=== PATIENT | male | born 1955 | race Caucasian/White ===

== ENCOUNTER → 2017-08-11 09:55 | Outpatient (CLI) | payer OTHER, SELFPAY ==
[2017-08-11 12:18] LABS: PSA,Total - Annual Screen 3.85 ng/mL (0.00-4.00)
== END ==
PROVIDERS: Family Provider Family Medicine; PCP Family Medicine; Visit Provider Family Medicine
DX: Z12.5 Encounter for screening for malignant neoplasm of prostate (principal)
CPT/HCPCS: 36415; 84153; G0103

== ENCOUNTER → 2018-09-10 09:51 | Outpatient (CLI) | payer OTHER, SELFPAY ==
[2018-09-10 12:58] LABS: PSA,Total - Annual Screen 3.26 ng/mL (0.00-4.00)
== END ==
PROVIDERS: Family Provider Family Medicine; PCP Family Medicine; Referring Provider Family Medicine; Visit Provider Family Medicine
DX: Z12.5 Encounter for screening for malignant neoplasm of prostate (principal)
CPT/HCPCS: 36415; 84153; G0103

== ENCOUNTER → 2019-09-16 07:04 | Outpatient (CLI) | payer OTHER, SELFPAY ==
[2019-09-16 09:54] LABS: Absolute Neutrophil Count 3.1 X10^3/uL (2.0-7.7); Basophil# 0.04 X10^3/uL; Basophil% 0.8 % (0-1); Eosinophil# 0.26 X10^3/uL; Eosinophils% 4.9 % (0-5); Hematocrit 48.5 % (40-54); Hemoglobin 16.3 g/dL (13.0-16.5); Lymphocyte % 28.1 % (19-41); Mean Corp Hgb Conc 33.6 g/dL (32-36); Mean Corpuscular Hgb 31.6 pg (27.0-32.0); Mean Platelet Vol. 9.7 fl (6.2-12.0); Monocyte# 0.42 X10^3/uL; Monocyte% 7.9 % (0-10); NRBC Flagged by Analyzer 0 % (0-5); Neutrophil % 58.1 % (47-70); Platelet Count 211 K/mm3 (150-450); RBC Distribution Width CV 12.3 % (11.6-14.6); RBC Distribution Width SD 42.4 fl (35.1-43.9); Red Blood Count 5.16 M/mm3 (4.6-6.2); White Blood Count 5.3 K/mm3 (4.4-11.0)
[2019-09-16 10:16] LABS: ALB/GLOB Ratio 0.9 RATIO (0.9-2.4); AST(SGOT) 30 U/L (15-37); Alanine Aminotransfer ALT/SGPT 41 U/L (16-61); Albumin, Serum 3.5 g/dL (3.2-5.0); Alkaline Phosphatase 63 U/L (45-117); Anion Gap 3 (5-15); BUN 14 mg/dL (7-18); BUN/Creat Ratio 15.3 RATIO (10-20); Calcium,Total 8.6 mg/dL (8.5-10.1); Chloride 107 mmol/L (98-107); Cholesterol 188 mg/dL (200); Creatinine, Serum 0.92 mg/dL (0.70-1.30); EST Glomerular Filtration Rate 89 mL/min (>60); Est Glom Filt Rate - Afr Amer 107 mL/min (>60); Globulin 3.7 g/dL (2.2-4.2); Glucose 85 mg/dL (74-106); High Density Lipoprotein 48 mg/dL; PSA,Total - Annual Screen 3.08 ng/mL (0.00-4.00); Potassium 3.8 mmol/L (3.5-5.1); Protein, Total 7.2 g/dL (6.4-8.2); Sodium Level 140 mmol/L (136-145); Thyroid Stim Hormone (TSH) 2.93 uIU/mL (0.358-3.74); Triglycerides 106 mg/dL; Very Low Density Lipoprotein 21 mg/dL (5-40)
== END ==
PROVIDERS: PCP Family Medicine; Referring Provider Family Medicine; Visit Provider Family Medicine
DX: Z00.00 Encounter for general adult medical examination without abnormal findings (principal); Z12.5 Encounter for screening for malignant neoplasm of prostate; E03.9 Hypothyroidism, unspecified
CPT/HCPCS: 36415; 80053; 80061; 84153; 84443; 85025; G0103

== ENCOUNTER → 2019-12-26 16:45 | Outpatient (CLI) | payer OTHER, SELFPAY | PROVIDERS: Anesthesiology; PCP Family Medicine; Referring Provider Family Medicine; Visit Provider Surgery | DX: Z11.59 Encounter for screening for other viral diseases (principal) | CPT/HCPCS: 87635; 94799; C9803; U0003 ==

== ENCOUNTER 2020-03-26 06:48 | Day surgery (SDC) | payer OTHER, SELFPAY ==
[2020-03-26] VITALS (7 sets, daily range): BP systolic 99–130; BP diastolic 61–82; PULSE 67–89; RESP 16; TEMP 36.9–37.2; O2SAT 94–97; BMI 26.0
[2020-03-26] MEDS: Lactated Ringers 1,000 ML 100 ML IV (07:20)
--- NOTE | 2020-03-26 08:00 | HP.PCM_ITS ---
History of Present Illness Date of Admission: 03/26/20 The patient is a 64 year old M who presents for screening colonoscopy. His last colonoscopy was greater than 10 years ago. No reports of polyps at that time. Past Medical/Surgical History - Planned Operation Planned Operative Procedure/s: cscope Date of Operative Procedure: 03/26/20 S.O.S: No - Previous Hospitalizations/Surgeries HX Hospitalizations: No HX of Surgeries: FRACTURE REPAIRS AND HARDWARE PLACEMENT TO RIGHT KNEE AND LEFT ANKLE 03/2013. colonoscopy Any Problems With Anesthesia: No You/Your Family Experience Fever (Hyperthermia) With Anes: No Cholinesterase deficiency: No - Cardiovascular Hx Chest Pain within Last 2 months: No Hx of Irregular Heartbeat and/or Afib: No Hx Heart Attack: No Hx Congestive Heart Failure: No Hx Rheumatic Fever: No Hx Hypertension: No Hx Internal Defibrillator: No Hx Pacemaker: No Hx Cardiac Catheterization: No Hx Cardiac Surgery/Stents/Etc.: No Hx Stress Test: No Hx Pain in Legs when Walking/Leg Cramps: No - Respiratory Chronic Cough: No HX of Shortness of Breath: No Hoarseness: No Hx Chronic Obstructive Pulmonary Disease (COPD): No Hx Asthma: No Hx Emphysema: No Hx Sleep Apnea: No Hx Respiratory Tract Infection/Cold (presently): No Do You Snore Loudly (louder than talking or can be heard): No Do You Often Feel Tired/ Fatigued/ Sleepy Dring Daytime?: No Has Anyone Observed You Stop Breathing During Sleep?: No Result (for STOP score): Negative Hx Smoking: No Smoking Status: Never smoker - Gastrointestinal Hx Gastroesophageal Reflux: No Hx Gastrointestinal Disorders: No Hx Gastrointestinal Bleed: No Hx Ulcer: No Hx Hiatal Hernia: No Difficulty Chewing/Swallowing: Yes - trouble swallowing sometimes Special diet followed at home: No Hx Unplanned Weight Loss of 20#: No HX Unplanned Weight Gain of 20#: No - Neurological Hx Seizures: No HX Syncope/Blackout Spells/Unconsciousness: No Hx Transient Ischemic Attacks (TIA): No Hx Multiple Sclerosis: No Hx Parkinson's Disease: No Hx Head/Neck Injury: No Hx Headaches: No Hx Back Injury/Pain: No Recent Onset of Speech Difficulty: No Restless Legs: No Does patient have nerve stimulator: No - Blood Disorder Hx Leukemia: No Bleeding Tendencies: No Hx Deep Vein Thrombosis: No Hx High Cholesterol: No Blood Transmitted Disease: No Hx Hepatitis: No Hx Cirrhosis: No Hx Anemia: No Hx Blood Disorders: No - Genitourinary Hx Renal Disease: No Hx Dialysis: No - Musculoskeletal Hx Arthritis: No Hx Rheumatoid Arthritis: No Hx Gout: No Recent Onset of an Orthopedic Problem: No - Endocrine Hx Diabetes: No Thyroid Disease: No Hx Steroid Therapy: No - Psycho/Social Hx Substance Use: No Hx Alcohol Use: Yes - 1-2 beers/month Hx Anxiety: No Hx Depression: No Mental Illness: No Hx Dementia: No - Miscellaneous Hx Cancer: No Recent Exposure to Contagious Disease: No Hx of C-Diff: No Any Loose Teeth: No Allergies amoxicillin [Amoxicillin] Allergy (Verified 03/26/20 06:54) Rash sulfamethoxazole [From Bactrim] Allergy (Verified 03/26/20 06:54) Rash trimethoprim [From Bactrim] Allergy (Verified 03/26/20 06:54) Rash - Discharge Is Pt Admitted From a Custodial, or a Alf: No After D/C, Where Do you Plan to Go: Return Home - From the PAT History Number of Risk Factors: 1 - Physical Exam Vitals/I&O's: Vital Signs Temp Pulse Resp BP Pulse Ox 98.5 F 89 16 130/82 H 97 03/26/20 07:14 03/26/20 07:14 03/26/20 07:14 03/26/20 07:14 03/26/20 07:14 Oxygen Delivery Method Room Air Weight: 176 lb 5.917 oz Body Mass Index (BMI) 26.0 Lungs: Clear to auscultation Cardiovascular: Regular rate, Regular Rhythm, No murmurs Abdomen: Bowel Sounds Present, Soft, Non Tender, Non-Distended Microbiology Past 72 Hours 03/23/20 16:05 Mucosa - Nose SARS-CoV-2 Antigen (Rapid) - Final Current Medications Lactated Ringer's () 1,000 mls @ 100 mls/hr IV .Q10H SHELIA Last Admin: 03/26/20 07:20 Dose: 100 mls/hr Documented by: Assessment/Plan Assessment: Screening colonoscopy Plan: We will be to perform a colonoscopy. Surgery Risks - Colonoscopy Risks Include but are not Limited To: Risks include but are not limited to: Bleeding, perforation requiring further surgery, inability to complete colonoscopy requiring barium enema.
--- NOTE | 2020-03-26 08:26 | OP.COLON_ITS ---
Patient Name: Moses Laboy Procedure Date: 03/26/2020 8:02 AM Date of : 1955 Age: 64 Procedure: Colonoscopy Indications: Screening for colorectal malignant neoplasm Providers: Afshin Horvath MD Referring MD: Ignacio Delarosa Medicines: See the Anesthesia note for documentation of the administered medications Patient Profile: This is a 64 year old male. Refer to note in patient chart for documentation of history and physical. Last Colonoscopy: more than 10 years ago. Complications: No immediate complications. Procedure: Pre-Anesthesia Assessment: - Prior to the procedure, a History and Physical was performed, and patient medications and allergies were reviewed. The patient's tolerance of previous anesthesia was also reviewed. The risks and benefits of the procedure and the sedation options and risks were discussed with the patient. All questions were answered, and informed consent was obtained. Prior Anticoagulants: The patient has taken no previous anticoagulant or antiplatelet agents. ASA Grade Assessment: II - A patient with mild systemic disease. After reviewing the risks and benefits, the patient was deemed in satisfactory condition to undergo the procedure. After I obtained informed consent, the scope was passed under direct vision. Throughout the procedure, the patient's blood pressure, pulse, and oxygen saturations were monitored continuously. The colonoscope was introduced through the anus and advanced to 3 cm into the ileum. The colonoscopy was performed without difficulty. The patient tolerated the procedure well. The quality of the bowel preparation was good. Scope In: 8:13:14 AM Scope Withdrawal Time 0 hours 6 minutes 0 seconds Scope Out: 8:22:20 AM Total Procedure Duration Time 0 hours 9 minutes 6 seconds Findings: The terminal ileum appeared normal. Non-bleeding internal hemorrhoids were found during retroflexion. The hemorrhoids were mild and small. No biopsies or other specimens were collected for this exam. A few small-mouthed diverticula were found in the sigmoid colon. No biopsies or other specimens were collected for this exam. The exam was otherwise without abnormality. Impression: - The examined portion of the ileum was normal. - Non-bleeding internal hemorrhoids. No specimens collected. - Diverticulosis in the sigmoid colon. No specimens collected. - The examination was otherwise normal. Recommendation: - Discharge patient to home. - Resume previous diet. - Continue present medications. - Repeat colonoscopy in 10 years for screening purposes. - Return to primary care physician (date not yet determined). Procedure Code(s): --- Professional --- 88509, Colonoscopy, flexible; diagnostic, including collection of specimen(s) by brushing or washing, when performed (separate procedure) Diagnosis Code(s): --- Professional --- Z12.11, Encounter for screening for malignant neoplasm of colon K64.8, Other hemorrhoids K57.30, Diverticulosis of large intestine without perforation or abscess without bleeding CPT copyright 2017 [employer]. All rights reserved. The codes documented in this report are preliminary and upon student career development specialist review may be revised to meet current compliance requirements. MD Afshin Ching MD 03/26/2020 8:26:42 AM This report has been signed electronically. Number of Addenda: 0 Note Initiated On: 03/26/2020 8:02 AM
--- NOTE | 2020-03-26 08:27 | OP.CCLET_ITS ---
03/26/2020 Ignacio Delarosa [address] [place] [address] Re : Colonoscopy procedure for Moses Laboy Dear Dr. Delarosa This procedure was performed on Thursday, March 26, 2020. My impressions and recommendations are as follows: Impressions : - The examined portion of the ileum was normal. - Non-bleeding internal hemorrhoids. No specimens collected. - Diverticulosis in the sigmoid colon. No specimens collected. - The examination was otherwise normal. Recommendations : - Discharge patient to home. - Resume previous diet. - Continue present medications. - Repeat colonoscopy in 10 years for screening purposes. - Return to primary care physician (date not yet determined). My findings are described in the full procedure note, which is enclosed. If I can be of further assistance, please feel free to contact me at Doctor phone number(s): , Fax: [phone], Work: . Sincerely, MD Afshin Ching MD 03/26/2020 8:26:42 AM This report has been signed electronically.
== END 2020-03-26 09:07 | disposition home or self-care (01) ==
LOC: EN 06:48 → AC 06:49
PROVIDERS: PCP Family Medicine; Referring Provider Family Medicine; Visit Provider Surgery
PROC: 0DJD8ZZ Inspection of Lower Intestinal Tract, Via Natural or Artificial Opening Endoscopic (ICD-10-PCS; CPT 45378; principal; 2020-03-26 07:55)
DX: Z12.11 Encounter for screening for malignant neoplasm of colon (principal); K57.30 Diverticulosis of large intestine without perforation or abscess without bleeding; K64.8 Other hemorrhoids
CPT/HCPCS: 45378; 87426; C9803; J7120

== ENCOUNTER → 2020-05-16 09:47 | Outpatient (CLI) | payer OTHER, SELFPAY ==
[2020-03-26 07:14] VITALS: BMI 26.0
--- NOTE | 2020-05-16 09:55 | RAD_ITS ---
STUDY: X-RAY - ESOPHAGUS (BARIUM SWALLOW) WITH FLUOROSCOPY REASON FOR EXAM: Male, 65 years old. DYSPHAGIA W/ SOLIDS X 3-4 YRS. ALSO FAM HX OF DYSPHAGIA W/ SOLIDS. FAM HX CA TECHNIQUE: 15 view(s) of the esophagus were obtained following swallowing of barium. FLUOROSCOPY TIME (if supplied): (0:32) minutes/seconds COMPARISON: None. FINDINGS: There is no demonstrated esophageal foreign body. There is no demonstrated stricture or mucosal abnormality. Normal gastroesophageal junction, without a demonstrated hiatal hernia. The patient ingested a 12 mm tablet of barium without any difficulty. Normal visualized aortic arch and descending thoracic aorta. Normal visualized pulmonary parenchyma. Normal visualized osseous structures of the thorax. RAD/Esophagus Dual Contrast IMPRESSION: Normal plain film x-ray examination (barium swallow) of the esophagus. Electronically Signed: Juan Antonio Mattson, at 14:20 EST , Service support ,
== END ==
PROVIDERS: PCP Family Medicine; Referring Provider Family Medicine; Visit Provider Family Medicine
DX: R13.10 Dysphagia, unspecified (principal)
CPT/HCPCS: 74221

== ENCOUNTER 2020-05-30 07:33 | Day surgery (SDC) | payer OTHER, SELFPAY ==
[2020-05-23 08:25] VITALS: BMI 28.3
[2020-05-30] VITALS (7 sets, daily range): BP systolic 94–129; BP diastolic 45–95; PULSE 70–81; RESP 16–18; TEMP 37–37.2; O2SAT 95–99; BMI 27.8
--- NOTE | 2020-05-30 05:17 | HP_ITS ---
Intake Vital Signs 05/23/20 Height 5 ft 8.25 in 05/23/20 Weight: 187 lb 5 oz Intake Visit Reasons: Esophagogastroduodenoscopy Allergies amoxicillin [Amoxicillin] Allergy (Verified 05/23/20 08:26) Rash sulfamethoxazole [From Bactrim] Allergy (Verified 05/23/20 08:26) Rash trimethoprim [From Bactrim] Allergy (Verified 05/23/20 08:26) Rash Medications omeprazole 40 mg capsule,delayed release cap PO 05/23/20 [History Confirmed 05/23/20] [facility] Medical History (Updated 05/23/20 @ 08:25 by Sheba Gaytan) Dysphagia (Acute) GERD (gastroesophageal reflux disease) (Acute) Surgical History (Updated 05/23/20 @ 08:25 by Sheba Gaytan) History of ankle surgery (Acute) History of appendectomy (Acute) History of colonoscopy (Acute ~03/2020) History of open reduction and internal fixation (ORIF) procedure (Acute) Family History (Updated 05/23/20 @ 08:25 by Sheba Gaytan) Father Heart disease Myocardial infarction Rheumatic fever Mother COPD (chronic obstructive pulmonary disease) Brother Cancer lung Social History (Updated 05/23/20 @ 09:[address] Afshin Horvath MD) Smoking Status: Never smoker HPI HPI Surgical H&P: Yes HPI: MELANIA SANTOYO, is a 65 M who presents For a telephone interview. Patient has been having problems with intermittent dysphagia. This is gotten worse over the last few months. He has had problems with food getting stuck about once a month. He states he notices this with solid foods. Feels like this is happening in the mid chest area. He did has had to vomit up steak in the past. He does not have any epigastric or substernal burning. He does not notice a sour taste in his throat or sensation cessation of regurgitation. Patient's last episode was on when he was having chili and it got stuck in his esophagus and he had to vomit this back up. Patient has had a barium swallow with fluoroscopy which showed no demonstrated stricture or mucosal abnormality there was no foreign bodies. The GE junction was normal without hiatal hernia and the 12 mm tablet went through it without difficulty. Patient has currently been started on a PPI by his primary care physician and has been taking it for the last 10 days. He states that he thinks that his food is going down easier through his esophagus and he has no longer having burping episodes. Assessment & Plan Problems 1. Esophageal dysphagia R13.10 Plan I have discussed the above with the patient. I have offered the patient esophagogastroduodenoscopy for evaluation. I have explained the risks/benefits of the procedure and described the procedure. I have discussed the risks with the patient, including but not limited to: infection, bleeding, perforation of the GI tract requiring emergency surgery, inability to complete the procedure, injury to any internal organs, complications of anesthesia, etc. - the patient understands and agrees to proceed. I have answered all the patient's questions to the patient's satisfaction and the patient has no further questions. The patient has been given instructions for the colon cleansing preparation. Coding Level of Care Code Attention [place] Diagnoses Esophageal dysphagia R13.10 ??Dysphagia type: esophageal phase Time Spent (min) 10 Comment Please bill this as a telephone visit for 10 minutes COVID (Procedure Consent) Procedure Criteria Procedure Criteria: Yes Elective The surgeon/proceduralist and patient have discussed in detail the risk of exposure to and/or potential harm posed by the COVID-19 virus with having a surgery/procedure at this time versus the risk of? delaying the surgery/procedure. It is not possible to know either the risk of delaying the surgery or procedure or chance of getting an infection with perfect accuracy, but a joint decision was made between the patient and the surgeon/proceduralist ?to proceed at this time with the scheduled surgery/procedure as indicated on the consent form. I have re-examined the patient. There are no clinical changes since date of exam.
[2020-05-30] MEDS: Lactated Ringers 1,000 ML 100 ML IV (08:04)
--- NOTE | 2020-05-30 08:45 | IMM_PTH ---
PATIENT: MELANIA SANTOYO LOC: [facility] U#:[id number] AGE/SX: 65/M ROOM: RE05/30/[address]: Dr. Afshin Horvath MD : 1955 BED: DIS: 05/30/2020 SPEC #: [id number] RECD: 05/30/20 13:52 STATUS: KEZIA RELior #: [id number] SUNDAY: 05/30/20 08:[address]: Afshin Horvath DEPT: IMMUNOHISTOCHEMISTRY RECD BY: Skyla Kelly ENTERED: 05/30/20 13:52 SP TYPE: IMMUNO OTHR DR: Dr. Ignacio Delarosa MD Tissues: Stomach, NOS Procedures: H Pylori (initial) PHYSICIAN & INSTITUTION [place] [address] SPECIMEN INFORMATION: Tissue Source: Antrum biopsy Clinical Info: Esophageal dysphagia Specimen Number: [id number] CPT code: 86367 METHODOLOGY: Deparaffinized sections of prefer/formalin-fixed tissue or PAP/DQ stained slides are incubated with monoclonal/polyclonal antibodies/oligonucleotide probes. Localization is made via biotin free immunoperoxidase method. Appropriate controls are performed and reacted as expected. Results on target cell population are indicated in the following table: RESULTS: ANTIBODY / CLONE RESULT H Pylori (polyclonal) negative These tests were developed and their performance characteristics determined by [facility]. They may not have been cleared or approved by the U.S. Food and Drug Administration. The FDA has determined that such clearance or approval is not necessary. INTERPRETATION: Antrum, biopsy: Negative for Helicobacter pylori organisms. AM:kat 05/31/2020
--- NOTE | 2020-05-30 08:45 | EGD_PTH ---
PATIENT: MELANIA SANTOYO LOC: EN U#:[id number] AGE/SX: 65/M ROOM: RE05/30/[address]: Dr. Afshin Horvath MD : 1955 BED: DIS: 05/30/2020 SPEC #: [id number] RECD: 05/30/20 10:53 STATUS: KEZIA OLSON #: [id number] SUNDAY: 05/30/20 08:[address]: Afshin Horvath DEPT: SURGICAL PATHOLOGY RECD BY: Latrice Tinoco ENTERED: 05/30/20 12:57 SP TYPE: EGD BIOPSY OT DR: Dr. Ignacio Delarosa MD Tissues: Gastric mucous membrane Procedures: Surgery Specimen Level IV HEADER OPERATION: EGD ([facility] [place], [place]) PRE-OP DIAGNOSIS: Esophageal dysphagia TISSUE SUBMITTED: Antrum biopsies for H. pylori and path MICROSCOPIC DIAGNOSIS Gastric antrum, biopsy: Chronic gastritis. See comment. AM:kat 05/31/2020 COMMENT The results of immunohistochemistry for Helicobacter pylori will be reported separately ([id number]). MICROSCOPIC DESCRIPTION Slides are reviewed. GROSS DESCRIPTION Received in fixative is one container labeled with the patient's name and designated antrum biopsy. The specimen consists of multiple irregular fragments of light harding soft tissue that in aggregate measure 1 x 0.2 x 0.1 cm. The specimen is totally submitted in one cassette. / AM:kat 05/30/20 TC:5 CPT: 01841
--- NOTE | 2020-05-30 13:44 | OP.CCLET_ITS ---
05/30/2020 Ignacio Delarosa [address] [place] [address] Re : Upper GI endoscopy procedure for Moses Laboy Dear Dr. Delarosa This procedure was performed on Saturday, May 30, 2020. My impressions and recommendations are as follows: Impressions : - Z-line regular, 42 cm from the incisors. No specimens collected. - Normal stomach. Biopsied. - Normal examined duodenum. No specimens collected. Recommendations : - Discharge patient to home. - Resume previous diet. - Continue present medications. - Await pathology results. - Repeat upper endoscopy PRN for surveillance. - Telephone my office for pathology results in 1 week. - If the patient's symptoms of dysphagia come back then he will need to have esophageal manometry studies performed My findings are described in the full procedure note, which is enclosed. If I can be of further assistance, please feel free to contact me at Doctor phone number(s): , Fax: [phone], Work: . Sincerely, MD Afshin Ching MD 05/30/2020 8:37:49 AM This report has been signed electronically.
--- NOTE | 2020-05-30 13:44 | OP.EGD_ITS ---
Patient Name: Moses Laboy Procedure Date: 05/30/2020 8:20 AM Date of : 1955 Age: 65 Procedure: Upper GI endoscopy Indications: Esophageal dysphagia Providers: Afshin Horvath MD Referring MD: Ignacio Delarosa Medicines: See the Anesthesia note for documentation of the administered medications Patient Profile: This is a 65 year old male. Refer to note in patient chart for documentation of history and physical. Complications: No immediate complications. Procedure: Pre-Anesthesia Assessment: - Prior to the procedure, a History and Physical was performed, and patient medications and allergies were reviewed. The patient's tolerance of previous anesthesia was also reviewed. The risks and benefits of the procedure and the sedation options and risks were discussed with the patient. All questions were answered, and informed consent was obtained. Prior Anticoagulants: The patient has taken no previous anticoagulant or antiplatelet agents. ASA Grade Assessment: II - A patient with mild systemic disease. After reviewing the risks and benefits, the patient was deemed in satisfactory condition to undergo the procedure. After obtaining informed consent, the endoscope was passed under direct vision. Throughout the procedure, the patient's blood pressure, pulse, and oxygen saturations were monitored continuously. The gastroscope was introduced through the mouth, and advanced to the second part of duodenum. The upper GI endoscopy was accomplished without difficulty. The patient tolerated the procedure well. Scope In: 8:30:21 AM Scope Out: 8:32:49 AM Total Procedure Duration Time 0 hours 2 minutes 28 seconds Findings: The Z-line was regular and was found 42 cm from the incisors. No biopsies or other specimens were collected for this exam. The entire examined stomach was normal. Biopsies were taken with a cold forceps for Helicobacter pylori testing. The examined duodenum was normal. No biopsies or other specimens were collected for this exam. Impression: - Z-line regular, 42 cm from the incisors. No specimens collected. - Normal stomach. Biopsied. - Normal examined duodenum. No specimens collected. Recommendation: - Discharge patient to home. - Resume previous diet. - Continue present medications. - Await pathology results. - Repeat upper endoscopy PRN for surveillance. - Telephone my office for pathology results in 1 week. - If the patient's symptoms of dysphagia come back then he will need to have esophageal manometry studies performed Procedure Code(s): --- Professional --- 63887, Esophagogastroduodenoscopy, flexible, transoral; with biopsy, single or multiple Diagnosis Code(s): --- Professional --- R13.14, Dysphagia, pharyngoesophageal phase CPT copyright 2017 [employer]. All rights reserved. The codes documented in this report are preliminary and upon pier master review may be revised to meet current compliance requirements. MD Afshin Ching MD 05/30/2020 8:37:49 AM This report has been signed electronically. Number of Addenda: 0 Note Initiated On: 05/30/2020 8:20 AM
== END 2020-05-30 09:20 | disposition home or self-care (01) ==
LOC: EN 07:35 → AC 07:35
PROVIDERS: PCP Family Medicine; Referring Provider Family Medicine; Visit Provider Surgery
PROC: 0DJ08ZZ Inspection of Upper Intestinal Tract, Via Natural or Artificial Opening Endoscopic (ICD-10-PCS; CPT 43235; principal; 2020-05-30 08:40)
DX: R13.10 Dysphagia, unspecified (principal); Z20.828 Contact with and (suspected) exposure to other viral communicable diseases; K21.9 Gastro-esophageal reflux disease without esophagitis; K29.50 Unspecified chronic gastritis without bleeding
CPT/HCPCS: 43239; 87426; 88305; 88342; C9803; J7120; J2405

== ENCOUNTER → 2020-09-19 09:00 | Outpatient (CLI) | payer OTHER, SELFPAY ==
[2020-09-19 10:12] LABS: Absolute Neutrophil Count 3.1 X10^3/uL (2.0-7.7); Basophil# 0.03 X10^3/uL; Basophil% 0.5 % (0-1); Eosinophils% 3.6 % (0-5); Hematocrit 47.9 % (40-54); Hemoglobin 15.6 g/dL (13.0-16.5); Lymphocyte % 30.6 % (19-41); Mean Corp Hgb Conc 32.6 g/dL (32-36); Mean Corpuscular Hgb 30.5 pg (27.0-32.0); Mean Corpuscular Volume 93.6 fL (80-94); Mean Platelet Vol. 9.4 fl (6.2-12.0); Monocyte# 0.47 X10^3/uL; Monocyte% 8.5 % (0-10); NRBC Flagged by Analyzer 0 % (0-5); Neutrophil # 3.14 X10^3/uL (2.7-7.7); Neutrophil % 56.4 % (47-70); Platelet Count 234 K/mm3 (150-450); RBC Distribution Width CV 11.9 % (11.6-14.6); RBC Distribution Width SD 41.2 fl (35.1-43.9); Red Blood Count 5.12 M/mm3 (4.6-6.2); White Blood Count 5.6 K/mm3 (4.4-11.0)
[2020-09-19 10:39] LABS: AST(SGOT) 31 U/L (15-37); Alanine Aminotransfer ALT/SGPT 45 U/L (16-61); Albumin, Serum 3.5 g/dL (3.2-5.0); Alkaline Phosphatase 72 U/L (45-117); Anion Gap 6 (5-15); BUN 16 mg/dL (7-18); BUN/Creat Ratio 17.2 RATIO (10-20); Calcium,Total 8.5 mg/dL (8.5-10.1); Chloride 105 mmol/L (98-107); Cholesterol 171 mg/dL (200); Creatinine, Serum 0.93 mg/dL (0.70-1.30); EST Glomerular Filtration Rate 87 mL/min (>60); Est Glom Filt Rate - Afr Amer 105 mL/min (>60); Globulin 3.6 g/dL (2.2-4.2); Glucose 83 mg/dL (74-106); High Density Lipoprotein 54 mg/dL; PSA,Total - Annual Screen 5.46 ng/mL (0.00-4.00); Potassium 3.9 mmol/L (3.5-5.1); Protein, Total 7.1 g/dL (6.4-8.2); Sodium Level 140 mmol/L (136-145); Triglycerides 79 mg/dL; Very Low Density Lipoprotein 16 mg/dL (5-40)
== END ==
PROVIDERS: PCP Family Medicine; Referring Provider Family Medicine; Visit Provider Family Medicine
DX: Z00.00 Encounter for general adult medical examination without abnormal findings (principal); Z12.5 Encounter for screening for malignant neoplasm of prostate
CPT/HCPCS: 36415; 80053; 80061; 84153; 85025; G0103

== ENCOUNTER → 2020-10-29 16:23 | Outpatient (CLI) | payer OTHER, SELFPAY ==
--- NOTE | 2020-10-29 | PROSBIL_PTH ---
PATIENT: MELANIA SANTOYO LOC: RYAN U#:[id number] AGE/SX: 69/M ROOM: RE10/29/[address]: Dr. Raul Sargent MD : 1955 BED: DIS: SPEC #: [id number] RECD: 10/30/20 09:58 STATUS: KEZIA WESLEY #: [id number] SUNDAY: 10/29/20 00:[address]: Raul Sargent DEPT: SURGICAL PATHOLOGY RECD BY: Vanessa Gutierrez ENTERED: 10/30/20 09:59 SP TYPE: PROST BX HARI DR: Dr. Ignacio Delarosa MD Tissues: A - PROSTATE RIGHT B - PROSTATE RIGHT C - PROSTATE RIGHT D - PROSTATE LEFT E - PROSTATE LEFT F - PROSTATE LEFT Procedures: PROSTATE BX HEADER OPERATION: Prostate biopsy PRE-OP DIAGNOSIS: Elevated PSA TISSUE SUBMITTED: A - Right apex, B - Right mid, C - Right base, D - Left apex, E - Left mid, F - Left base MICROSCOPIC DIAGNOSIS A. Right prostate, apex, core biopsy: Benign prostatic tissue. B. Right prostate, mid, core biopsy: Focal glandular atrophy. See comment. C. Right prostate, base, core biopsy: Focal high-grade prostatic intraepithelial neoplasia (HGPIN). Glandular atrophy and minimal chronic inflammation. See comment. D. Left prostate, apex, core biopsy: Benign prostatic tissue. E. Left prostate, mid, core biopsy: Focal glandular atrophy and minimal chronic inflammation. See comment. F. Left prostate, base, core biopsy: Benign prostatic tissue. See comment. AM:kat 10/31/2020 COMMENT B, C, E & F - Immunohistochemistry ([id number]) supports the above diagnosis. MICROSCOPIC DESCRIPTION Slides are reviewed. GROSS DESCRIPTION A - Received is one container designated prostate, right apex. The specimen consists of one elongated fragment of light harding-white soft tissue measuring 0.4 cm in length and 0.1 cm in diameter. The specimen is totally submitted in one cassette. B - Received is one container designated prostate, right mid. The specimen consists of two elongated fragments of light harding-white soft tissue each measuring 1 cm in length and 0.1 cm in diameter. The specimen is totally submitted in one cassette. C - Received is one container designated prostate, right base. The specimen consists of two elongated fragments of light harding-white soft tissue measuring 0.7 and 0.9 cm in length and 0.1 cm in diameter. The specimen is totally submitted in one cassette. D - Received is one container designated prostate, left apex. The specimen consists of one elongated fragment of light harding-white soft tissue measuring 0.9 cm in length and 0.1 cm in diameter. The specimen is totally submitted in one cassette. E - Received is one container designated prostate, left mid. The specimen consists of two elongated fragments of light harding-white soft tissue each measuring 0.7 cm in length and 0.1 cm in diameter. The specimen is totally submitted in one cassette. F - Received is one container designated prostate, left base. The specimen consists of two elongated fragments of light harding-white soft tissue each measuring 1 cm in length and 0.1 cm in diameter. The specimen is totally submitted in one cassette. / SJ:rg 10/30/20 TC:3 CPT: 11390 x6 ADDENDUM ADDENDUM ADDENDUM ADDENDUM ADDENDUM ADDENDUM ADDENDUM ADDENDUM ADDENDUM ADDENDUM ADDENDUM ADDENDUM ADDENDUM ADDENDUM ADDENDUM ADDENDUM ADDENDUM ADDENDUM ADDENDUM ADDENDUM 07/16/2021 11:43 ADDENDUM 07/16/2021 11:43 ADDENDUM 07/16/2021 11:43 ADDENDUM 07/16/2021 11:43 ADDENDUM 07/16/2021 11:43 This addendum is added to incorporate an outside pathology consultation report. The case was examined at [facility] (#[id number]) and the following diagnosis was rendered. A. Right prostate, apex, core biopsy: Benign prostatic tissue. B. Right prostate, mid, core biopsy: Benign prostatic tissue. C. Right prostate, base, core biopsy: Benign prostatic tissue. D. Left prostate, apex, core biopsy: Benign prostatic tissue. E. Left prostate, mid, core biopsy: Benign prostatic tissue. F. Left prostate, base, core biopsy: Benign prostatic tissue. Please see complete above mentioned consultation report in EMR
--- NOTE | 2020-10-29 | IMM_PTH ---
PATIENT: MELANIA SANTOYO LOC: RYAN U#:[id number] AGE/SX: 69/M ROOM: RE10/29/[address]: Dr. Raul Sargent MD : 1955 BED: DIS: SPEC #: [id number] RECD: 10/31/20 13:20 STATUS: KEZIA REQ #: [id number] SUNDAY: 10/29/20 00:[address]: Raul Sargent DEPT: IMMUNOHISTOCHEMISTRY RECD BY: Skyla Kelly ENTERED: 10/31/20 13:22 SP TYPE: IMMUNO OTHR DR: Dr. Ignacio Delarosa MD Tissues: B - PROSTATE RIGHT C - PROSTATE RIGHT E - PROSTATE LEFT F - PROSTATE LEFT Procedures: 34BE12 (add) P40 (add) 34BE12 (initial) PHYSICIAN & INSTITUTION [place] [id number] SPECIMEN INFORMATION: Tissue Source: B - Right mid, C - Right base, E - Left mid, F - Left base Clinical Info: Elevated PSA Specimen Number: [id number] B, C, E & F CPT code: 99610, 45845 x7 METHODOLOGY: Deparaffinized sections of prefer/formalin-fixed tissue or PAP/DQ stained slides are incubated with monoclonal/polyclonal antibodies/oligonucleotide probes. Localization is made via biotin free immunoperoxidase method. Appropriate controls are performed and reacted as expected. Results on target cell population are indicated in the following table: RESULTS: ANTIBODY / CLONE RESULT Block B P40 (BC28) positive 34BE12 (34BE12) positive Block C P40 (BC28) positive 34BE12 (34BE12) positive Block E P40 (BC28) positive 34BE12 (34BE12) positive Block F P40 (BC28) positive 34BE12 (34BE12) positive These tests were developed and their performance characteristics determined by [facility]. They may not have been cleared or approved by the U.S. Food and Drug Administration. The FDA has determined that such clearance or approval is not necessary. The above immunohistochemical/dualISH markers are ordered and reviewed by the Pathologist. INTERPRETATION: B. Right prostate, mid, core biopsy: Benign prostatic tissue. C. Right prostate, base, core biopsy: Benign prostatic tissue. E. Left prostate, mid, core biopsy: Benign prostatic tissue. F. Left prostate, base, core biopsy: Benign prostatic tissue. AM:kat 11/01/2020
== END ==
PROVIDERS: PCP Family Medicine; Referring Provider Urology; Visit Provider Urology
DX: R97.20 Elevated prostate specific antigen [PSA] (principal)
CPT/HCPCS: 88305; 88341; 88342; G0416

== ENCOUNTER → 2021-05-08 11:40 | Outpatient (CLI) | payer MEDICARE, BC, SELFPAY ==
[2021-05-08 15:29] LABS: PSA,Total- Diagnostic 6.45 ng/mL (0.0-4.0)
== END ==
PROVIDERS: PCP Family Medicine; Visit Provider Urology
DX: R97.20 Elevated prostate specific antigen [PSA] (principal)
CPT/HCPCS: 36415; 84153

== ENCOUNTER 2021-05-21 16:59 | Outpatient (CLI) | payer MEDICARE, BC, SELFPAY ==
--- NOTE | 2021-05-21 17:02 | MRI_ITS ---
MR Pelvis WO/W Contrast 05/21/2021 5:23 PM COMPARISON: None CLINICAL HISTORY: 66 yo male with elevated PSA level Most recent PSA = information not provided ; PSA date = information not provided TECHNIQUE: Standard Prostate MRI protocol was used without an endorectal coil. 17 cc IV Dotarem was given. FINDINGS: Prostate volume: 34 cc PSA density: PSA level not provided Length of membranous urethra: 13 mm Post-biopsy hemorrhage: None Multiparametric MR evaluation: Heterogeneous appearance of the central gland is consistent with benign prostatic hyperplasia. Lesion 1: There is an irregular moderately T2 hypointense lesion centered in the right anterior transitional zone at mid gland and involving part of the left anterior transitional zone (image 18, series 6). It measures approximately 2.4 x 1.5 x 1.9 cm. It demonstrates high signal on DWI and low signal on ADC map. T2 - PI-RADS 5 DWI - PI-RADS 5 DCE - inconclusive Overall PI-RADS v2 score = 5 Lesion 2: There is a 1.3 x 1.1 x 1.1 cm moderately T2 hypointense ill-defined lesion in the right posterior medial peripheral zone near base (image 13, series 5). It is bright on DWI and dark on ADC map. T2 - PI-RADS 4 DWI - PI-RADS 4 DCE - inconclusive Overall PI-RADS v2 score = 4 Capsular margin and neurovascular bundle: Possible microcapsular extension anteriorly by lesion 1. No obvious microcapsular extension. Seminal vesicles: Questionable invasion of the right seminal vesicle by lesion 2. Lymph nodes: No lymphadenopathy in the field of view. Bones: No suspicious lesions in the field of view. MRI/Pelvis W/WO Contrast IMPRESSION: -2.4 cm PI-RADS 5 lesion in the right and left anterior TZ at mid gland. -1.3 cm PI-RADS 4 lesion in the right posteromedial PZ near base. - No evidence of macroscopic extracapsular extension. Possible microcapsular extension anteriorly by lesion 1. Questionable invasion of the right seminal vesicle by lesion 2. - No lymphadenopathy. No suspicious bone lesions. Electronically Signed: Kem Ramirez MD at 0:16 EST Tel , Service support ,
[2021-05-21 17:25] LABS: CREATININE FINGERSTICK < 0.6 mg/dL (0.70-1.30); EGFR FINGERSTICK > 60.0000 mL/min (>60)
== END 2021-05-21 23:59 | disposition short-term general hospital (02) ==
LOC: MRI 17:00
PROVIDERS: PCP Family Medicine; Referring Provider Urology; Visit Provider Urology
DX: R97.20 Elevated prostate specific antigen [PSA] (principal)
CPT/HCPCS: 72197; A9575

== ENCOUNTER 2021-06-10 18:25 | Outpatient (CLI) | payer MEDICARE, BC, SELFPAY ==
--- NOTE | 2021-06-10 | IMM_PTH ---
PATIENT: MELANIA SANTOYO LOC: RYAN U#:[id number] AGE/SX: 66/M ROOM: RE06/10/[address]: Dr. Raul Sargent MD : 1955 BED: DIS: 06/10/2021 SPEC #: [id number] RECD: 06/12/21 12:13 STATUS: KEZIA RELior #: [id number] SUNDAY: 06/10/21 00:[address]: Raul Sargent DEPT: IMMUNOHISTOCHEMISTRY RECD BY: Skyla Kelly ENTERED: 06/12/21 12:14 SP TYPE: IMMUNO OTHR DR: Dr. Ignacio Delarosa MD Tissues: C - PROSTATE LEFT Procedures: P40 (add) 34BE12 (initial) PHYSICIAN & INSTITUTION [place] [id number] SPECIMEN INFORMATION: Tissue Source: C ? Left prostate Clinical Info: Elevated PSA Specimen Number: [id number] CPT code: 17157, 49302 METHODOLOGY: Deparaffinized sections of prefer/formalin-fixed tissue or PAP/DQ stained slides are incubated with monoclonal/polyclonal antibodies/oligonucleotide probes. Localization is made via biotin free immunoperoxidase method. Appropriate controls are performed and reacted as expected. Results on target cell population are indicated in the following table: RESULTS: ANTIBODY / CLONE RESULT Block C P40 (BC28) positive 34BE12 (34BE12) positive These tests were developed and their performance characteristics determined by [facility]. They may not have been cleared or approved by the U.S. Food and Drug Administration. The FDA has determined that such clearance or approval is not necessary. The above immunohistochemical/dualISH markers are ordered and reviewed by the Pathologist. INTERPRETATION: Bernardo Gilbert, left, core biopsy: Benign prostatic tissue AM:kirstin 06/14/2021
--- NOTE | 2021-06-10 08:00 | PROSBIL_PTH ---
PATIENT: MELANIA SANTOYO LOC: RYAN U#:[id number] AGE/SX: 66/M ROOM: RE06/10/[address]: Dr. Raul Sargent MD : 1955 BED: DIS: 06/10/2021 SPEC #: [id number] RECD: 06/10/21 16:26 STATUS: KEZIA WESLEY #: [id number] SUNDAY: 06/10/21 08:[address]: Raul Sargent DEPT: SURGICAL PATHOLOGY RECD BY: Vanessa Gutierrez ENTERED: 06/11/21 09:42 SP TYPE: PROST BX HARI DR: Dr. Ignacio Delarosa MD Tissues: A - PROSTATE RIGHT B - PROSTATE RIGHT C - PROSTATE RIGHT Procedures: PROSTATE BX HEADER OPERATION: Prostate biopsy PRE-OP DIAGNOSIS: Elevated PSA R97.20 TISSUE SUBMITTED: A ? Right base, B ? Transition, C - Left MICROSCOPIC DIAGNOSIS A. Prostate, right base, core biopsy: Benign prostatic tissue. B. Prostate, transition, core biopsy: Mild chronic inflammation and focal glandular atrophy. C. Prostate, left, core biopsy: Focal glandular atrophy and mild chronic inflammation. See comment. AM:kat 06/12/2021 COMMENT C. Immunohistochemistry ([id number]) supports the above diagnosis. MICROSCOPIC DESCRIPTION Slides are reviewed. GROSS DESCRIPTION A - Received in fixative is one container labeled with the patient's name and designated right base. The specimen consists of two elongated fragments of light harding-white soft tissue each measuring 1 cm in length and 0.1 cm in diameter. The specimen is totally submitted in one cassette. B - Received in fixative is one container labeled with the patient's name and designated transition. The specimen consists of four elongated fragments of light harding-white soft tissue each measuring 1 cm in length and 0.1 cm in diameter. The specimen is totally submitted in one cassette. C - Received in fixative is one container labeled with the patient's name and designated left. The specimen consists of three elongated fragments of light harding-white soft tissue each measuring 2 cm in length and 0.1 cm in diameter. The specimen is totally submitted in one cassette. / AM:kat 06/11/2021 TC:3 CPT: G0146 ADDENDUM ADDENDUM ADDENDUM ADDENDUM ADDENDUM ADDENDUM ADDENDUM ADDENDUM ADDENDUM ADDENDUM ADDENDUM ADDENDUM ADDENDUM ADDENDUM 07/16/2021 11:41 ADDENDUM 07/16/2021 11:41 ADDENDUM 07/16/2021 11:41 ADDENDUM 07/16/2021 11:41 ADDENDUM 07/16/2021 11:41 This addendum is added to incorporate an outside pathology consultation report. The case was examined at [facility] (#[id number]) and the following diagnosis was rendered. A. Prostate, right base, core biopsy: Benign prostatic tissue. B. Prostate, transition, core biopsy: Benign prostatic tissue. C. Prostate, left, core biopsy: Benign prostatic tissue. Please see complete above mentioned consultation report in EMR
== END 2021-06-10 23:59 | disposition short-term general hospital (02) ==
PROVIDERS: PCP Family Medicine; Visit Provider Urology
DX: R97.20 Elevated prostate specific antigen [PSA] (principal)
CPT/HCPCS: 88305; 88341; 88342; G0416

== ENCOUNTER → 2021-12-18 | Outpatient (CLI) | payer MEDICARE, BC, SELFPAY ==
[2021-12-18 10:17] LABS: PSA,Total- Diagnostic 6.68 ng/mL (0.0-4.0)
== END | disposition home or self-care (01) ==
LOC: MFPLAB 08:36
PROVIDERS: PCP Family Medicine; Visit Provider Registered Nurse
DX: R97.20 Elevated prostate specific antigen [PSA] (principal)
CPT/HCPCS: 36415; 84153

== ENCOUNTER → 2022-06-09 | Outpatient (CLI) | payer MEDICARE, BC, SELFPAY ==
[2022-06-09 10:41] LABS: PSA,Total- Diagnostic 4.96 ng/mL (0.0-4.0)
== END | disposition home or self-care (01) ==
LOC: MTLAB 08:33
PROVIDERS: PCP Family Medicine; Referring Provider Urology; Visit Provider Urology
DX: N40.1 Benign prostatic hyperplasia with lower urinary tract symptoms (principal)
CPT/HCPCS: 36415; 84153

== ENCOUNTER → 2023-05-12 | Outpatient (CLI) | payer MEDICARE, OTHER, SELFPAY ==
--- OUTSIDE RECORDS SUMMARY | 2023-05-12 08:29 | XMS RPT_ITS | CCD ---
Author Name Unknown Address [address] [place] [address] Organization [facility] Care Team Providers Care Power Tool Repair Technician Name Role Phone Ignacio Schmidt Primary Care Provider Allergies Allergy Classification Reported Allergen(s) Allergy Type Date of Onset Reaction(s) Facility Penicillins (antibiotic) (1 source) Amoxicillin Drug Allergy 02-26-2013 Rash [facility] Problems Problem Classification Problem Date Documented Da te Episodic/Chronic Deficiency and other anemia (1 source) Iron deficiency anemia; Translations: [Iron deficiency anemia, unspecified] Onset: 03-09-2013 Episodic Fracture of lower limb (3 sources) Fracture of distal end of tibia; Translations: [Unspecified fracture of lower end of unspecified tibia, initial encounter for closed fracture] Onset: 02-28-2013 Episodic Encounters Encounter Date Encounter Type Care Provider Facility Start: 05-17-2013 End: 05-17-2013 Telephone encounter Torres Ramirez MD Work Phone: Orthopaedics Plan of Treatment Date Care Activity Detail Author Start: 01-09-2021 Influenza vaccination INFLUENZA (Sea son Ended) [facility] Start: 02-29-2016 DIABETES SCREEN DIABETES SCREEN [facility] Start: 2011 PROSTATE CANCER SCRE ENING DISCUSSION PROSTATE CANCER SCREENING DISCUSSION [facility] Start: 2006 Screening for malign ant neoplasm of colon [facility] Start: 2006 SHINGRIX VACCINE (1 of 2) OLIVIER GRIX VACCINE (1 of 2) [facility] Start: 1991 LIPID SCREEN LIPID SCREEN [facility] Start: 1975 Urine microalbumin profile DTAP,TDAP ,TD (1 - Tdap) [facility] Start: 1974 HEPATITIS C SCREENING HEPATITIS C SC ALBERTO [facility] Start: 1974 HIV SCREENING HIV SCREENING [facility] Start: 1968 Adult depression scr eening assessment DEPRESSION SCREENING [facility] Payers Date Payer Category Payer Unknown MMO MMO [employer] PLUS [id number] 2013-Present PPO [id number] Social History Date Type Detail Facility [facility]: [facility] Start: 02-28-2013 Tobacco use and exposure Never used [facility] Start: 02-28-2013 Alcohol intake Current non-dr die sinker of alcohol (finding) [facility] Start: 1955 Sex Assigned At Not on file C [facility] Medical Equipment Procedure Code Equipment Code Equipment Origin al Text Equipment Identifier Dates Smf-Wv-K-Kind Implant - [id number] Start: 03-10-2013 Note 05-17-2013 Telephone Encounter - Shazia Cisse - 05/17/2013 9:00 AM EST Note Date & Type Note Facility 05-17-2013 Miscellaneous Notes Mrs. Laboy telephoned re: Mr. Lopes. States he has a rash around the incision. Looks like raised bumps. Warm to touch. Stated I would notify Dr. Ramirez's nurse. Paged nurse. Shazia Cisse Etiquette Coach documented in this encounter [facility] Advance Directives Documents on File Type Date Recorded Patient Academic Tutor Expl anation Advance Directive(s) 04/13/2013 7:40 PM Additional Source Comments Source Comments (unrecognize d section and content) In the event this informatio n is protected by the Federal Confidentiality of Alcohol and Drug Abuse Patient Records regulations: The Federal rules restrict any use of the information to criminally investigate or prosecute any alcohol or drug abuse patient.[facility] FOR RECORDS PERTAINING TO PATIENTS WHO ARE OR HAVE BEEN ENROLLED IN A CHEMICAL DEPENDENCY/SUBSTANCEABUSE PROGRAM, SOME INFORMATION MAY BE OMITTED. This clinical summary was aggregated from multiple sources. Caution should be exercised in using it in the provision of clinical care. This summary normalizes information from multiple sources, and as a consequence, information in this document may materially change the coding, format and clinical context of patient data. In addition, data may be omitted in some cases. CLINICAL DECISIONS SHOULD BE BASED ON THE PRIMARY CLINICAL RECORDS. [facility]. provides no warranty or guarantee of the accuracy or completeness of information in this document.
[2023-05-12 10:45] LABS: PSA,Total- Diagnostic 7.18 ng/mL (0.0-4.0)
== END | disposition home or self-care (01) ==
LOC: MTLAB 07:59
PROVIDERS: PCP Family Medicine; Referring Provider Urology; Visit Provider Urology
DX: N40.1 Benign prostatic hyperplasia with lower urinary tract symptoms (principal)
CPT/HCPCS: 36415; 84153

== ENCOUNTER 2023-05-29 07:27 | Observation (INO) | payer MEDICARE, OTHER, SELFPAY ==
--- NOTE | 2023-05-28 07:47 | EKG12_ITS ---
Test Reason : PREOP Blood Pressure : / mmHG Vent. Rate : 086 BPM Atrial Rate : 086 BPM P-R Int : 168 ms QRS Dur : 076 ms QT Int : 352 ms P-R-T Axes : 064 -27 032 degrees QTc Int : 421 ms Normal sinus rhythm Normal ECG Confirmed by ALYCE DE ANDA, MARGRET ([id number]), newspaper editor managing BERNADINE GONZALEZ ([id number]) on 05/28/2023 1:24:30 PM Referred By: Raul Sargent Confirmed By:MARGRET MEAD MD
[2023-05-29] VITALS (11 sets, daily range): BP systolic 115–135; BP diastolic 59–80; PULSE 77–90; RESP 12–20; TEMP 36.4–37.6; O2SAT 95–99; BMI 25.4
--- NOTE | 2023-05-29 | PROS_PTH ---
PATHOLOGY RESULTS PATIENT: MELANIA SANTOYO LOC: MS3 U#:[id number] AGE/SX: 68/M ROOM: [facility] RE05/29/[address]: Dr. Raul Sargent MD : 1955 BED: 1 DIS: 05/30/2023 SPEC #: [id number] RECD: 05/29/23 13:19 STATUS: KEZIA OLSON #: [id number] SUNDAY: 05/29/23 00:[address]: Raul Sargent DEPT: SURGICAL PATHOLOGY RECD BY: Kyle Ramirez ENTERED: 05/29/23 13:19 SP TYPE: TURP OTHR DR: Dr. Ignacio Delarosa MD Tissues: Prostate, NOS Procedures: Surgery Specimen Level IV HEADER OPERATION: Transurethral resection of prostate with Olympus PRE-OP DIAGNOSIS: BPH with retention of urine TISSUE SUBMITTED: Prostate tissue MICROSCOPIC DIAGNOSIS Prostate tissue, transurethral resection: Benign prostatic hyperplasia, glandular and stromal type. SJ:kat 06/01/2023 MICROSCOPIC DESCRIPTION Slides are reviewed. GROSS DESCRIPTION Received is one container labeled with the patient's name and designated prostate tissue. The specimen consists of multiple irregular fragments of pink-harding, rubbery, soft tissue that in aggregate weigh 4.2 gm and measure in aggregate 3.0 x 3.0 x 1.0 cm. A few fragments of blood clots are also noted. The entire specimen is submitted in five cassettes. / JANINE:kat 05/29/2023 TC:5 CPT: 82261
--- OUTSIDE RECORDS SUMMARY | 2023-05-29 07:07 | XMS RPT_ITS | CCD ---
Author Name Unknown Address [address] [place] [address] Organization [facility] Care Team Providers Care English Language Arts Teacher Name Role Phone Ignacio Schmidt Primary Care Provider Allergies Allergy Classification Reported Allergen(s) Allergy Type Date of Onset Reaction(s) Facility Penicillins (antibiotic) (1 source) Amoxicillin Drug Allergy 02-26-2013 Rash [facility] Problems Problem Classification Problem Date Documented Da [...] 01-09-2021 Influenza vaccination INFLUENZA (Sea son Ended) [facility] Start: 02-29-2016 DIABETES SCREEN DIABETES SCREEN [facility] Start: 2011 PROSTATE CANCER SCRE ENING DISCUSSION PROSTATE CANCER SCREENING DISCUSSION [facility] Start: 2006 Screening for malign ant neoplasm of colon [facility] Start: 2006 SHINGRIX VACCINE (1 of 2) OLIVIER GRIX VACCINE (1 of 2) [facility] Start: 1991 LIPID SCREEN LIPID SCREEN [facility] Start: 1975 Urine microalbumin profile DTAP,TDAP ,TD (1 - Tdap) [facility] Start: 1974 HEPATITIS C SCREENING HEPATITIS C SC ALBERTO [facility] Start: 1974 HIV SCREENING HIV SCREENING [facility] Start: 1968 Adult depression scr eening assessment DEPRESSION SCREENING [facility] Payers Date Payer Category Payer Unknown MMO MMO SU[employer] PLUS [id number] 2013-Present PPO [id number] Social History Date Type Detail Facility Start: 02-28-2013 [facility] Start: 02-28-2013 Tobacco use and exposure Never used [facility] Start: 02-28-2013 Alcohol intake Current non-dr tube cutter operator of alcohol (finding) [facility] Start: 1955 Sex Assigned At Not on file C [facility] Medical Equipment Procedure Code Equipment Code Equipment Origin al Text Equipment Identifier Dates Xmx-Vf-I-Kind Implant - [id number] Start: 03-10-2013 Note 05-17-2013 Telephone Encounter - Shazia Cisse - 05/17/2013 9:00 AM EST Note Date & Type Note Facility 05-17-2013 Miscellaneous Notes Mrs. Laboy telephoned re: Mr. Lopes. States he has a rash around the incision. Looks like raised bumps. Warm to touch. Stated I would notify Dr. Ramirez's nurse. Paged nurse. Shazia Cisse [place] documented in this encounter [facility] Advance Directives Documents on File Type Date Recorded Patient Nuclear Equipment Operator Expl anation Advance Directive(s) 04/13/2013 7:40 PM Additional Source Comments Source Comments (unrecognize d section and content) In the event this informatio n is protected by the Federal Confidentiality of Alcohol and Drug Abuse Patient Records regulations: The Federal rules restrict any use of the information to criminally investigate or prosecute any alcohol or drug abuse patient.[facility] FOR RECORDS PERTAINING TO PATIENTS WHO ARE [...] BE BASED ON THE PRIMARY CLINICAL RECORDS. [facility]. provides no warranty or guarantee of the accuracy or completeness of information in this document.
[2023-05-29] MEDS: Lactated Ringers 1,000 ML 15 ML IV ×2 (07:13→09:10)
--- NOTE | 2023-05-29 07:30 | PCM.HP.STD ---
HPI - General General Date of Admission: 05/29/23 Chief Complaint: BPH with retention of urine HPI Narrative MELANIA SANTOYO, is a 68 M who presents for transurethral section of prostate has developed retention of urine PFSH Medical History (Updated 05/27/23 @ 14:02 by Linette Phoenix) Alcohol use Dysphagia Indwelling urethral catheter present Injury of back Loss of hearing Low iron Non-smoker Prostate disease Wears glasses Home Medications ciprofloxacin HCl 500 mg tablet (Cipro) 500 mg PO BID #14 tabs 05/29/23 [Rx Last Taken Unknown] ibuprofen 600 mg tablet 600 mg PO Q6H PRN fever or pain #20 tabs 05/29/23 [Rx Last Taken Unknown] Allergy/AdvReac Type Severity Reaction Status Date / Time amoxicillin [Amoxicillin] Allergy Rash Verified 05/29/23 07:13 sulfamethoxazole Allergy Rash Verified 05/29/23 07:13 [From Bactrim] trimethoprim [From Bactrim] Allergy Rash Verified 05/29/23 07:13 Family History (Updated 05/23/20 @ 08:25 by Sheba Gaytan) Father Heart disease Myocardial infarction Rheumatic fever Mother COPD (chronic obstructive pulmonary disease) Brother Cancer lung Surgical History (Updated 05/27/23 @ 14:02 by Linette Phoenix) History of ankle surgery History of appendectomy History of colonoscopy (~03/2020) History of open reduction and internal fixation (ORIF) procedure Hx of esophagogastroduodenoscopy Social History (Updated 06/06/20 @ 10:12 by Geovanna GÓMEZ PAGretchenC) Smoking Status: Never smoker Vital Signs Vital Signs Vital Signs: 05/29/23 07:14 05/29/23 07:14 Temperature 99.7 F H Temperature Source Temporal Pulse Rate 89 Respiratory Rate 17 Respiratory Pattern Normal Blood Pressure 134/72 H Blood Pressure Mean 92 Blood Pressure Source Monitor Blood Pressure Position Semi-Fowlers Blood Pressure Location Right Arm Pulse Ox 99 Oxygen Delivery Method Room Air Weight Weight: 78.2 kg Body Mass Index (BMI) 25.4
--- NOTE | 2023-05-29 07:31 | DCINST_ITS ---
Discharge Instructions Diet Discharge Diet: No restrictions Activity Discharge Activity: Return to Normal Activity and May Not Drive (while taking narcotic pain medications.) Dressing / Incision Call your doctor if you observe: Fever of 101 or Higher Follow Up Care Please Follow Up With: Raul Sargent MD When: Call [phone] for an appointment Test Results: Test results from this visit will be discussed in further detail at your follow- up appointment, if applicable. Discharge Plan Admission Primary Reason for Your Visit: TURP Attending Provider: Raul Sargent Primary Care Provider: Ignacio Delarosa Discharge Orders/Prescriptions Prescriptions: New ciprofloxacin HCl [Cipro] 500 mg tablet 500 mg PO BID Qty: 14 0RF ibuprofen 600 mg tablet 600 mg PO Q6H PRN (Reason: fever or pain) Qty: 20 0RF Referrals / Follow Up: Raul Sargent MD [Med Staff - Active Staff] - Ignacio Delarosa MD [Primary Care Provider] -
[2023-05-29] MEDS: Cefazolin 2 GM in 0.9% Normal Saline (100mL Bag) 100 ML IV (07:36)
--- NOTE | 2023-05-29 08:35 | OP.PCM_ITS ---
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 Went into the urethra with a 26 Singaporean continuous-flow resectoscope once I went past the sphincter and the verumontanum identified he had a very large obstructive prostate coming from the floor the prostate mostly obstructive tissue was coming from the 6 o'clock position I then switched over to the loop and resected the obstructing tissue I then switched over to the 24 Singaporean noncontinuous flow and then continued resecting the prostate I then resected all the tissue from the bladder neck to the verumontanum I then switched over the button and smooth out the resection we did a flow test had a wide open flow nature all the chips and blood was out of the bladder and then obtain hemostasis and then we placed a catheter into the bladder with continuous irrigation and he is taken back to the PACU in the condition of surgery took about 1 hour. Surgeon: Raul Sargent Type of Anesthesia: General Specimen's removed: prostate tissue Admit VTE Documentation VTE Present on Admission: No VTE Mechan Device Prophylaxis: SCD's VTE Pharm Prophylaxis ordered?: No
--- OUTSIDE RECORDS SUMMARY | 2023-05-29 09:14 | XMS RPT_ITS | CCD ---
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 Name Role Phone Ignacio Schmidt Primary Care Provider Allergies Allergy Classification Reported Allergen(s) Allergy Type Date of Onset Reaction(s) Facility Penicillins (antibiotic) (1 source) Amoxicillin Drug Allergy 02-26-2013 Rash [facility] Problems Problem Classification Problem Date Documented Da [...] 01-09-2021 Influenza vaccination INFLUENZA (Sea son Ended) [facility] Start: 02-29-2016 DIABETES SCREEN DIABETES SCREEN [facility] Start: 2011 PROSTATE CANCER SCRE ENING DISCUSSION PROSTATE CANCER SCREENING DISCUSSION [facility] Start: 2006 Screening for malign ant neoplasm of colon [facility] Start: 2006 SHINGRIX VACCINE (1 of 2) OLIVIER GRIX VACCINE (1 of 2) [facility] Start: 1991 LIPID SCREEN LIPID SCREEN [facility] Start: 1975 Urine microalbumin profile DTAP,TDAP ,TD (1 - Tdap) [facility] Start: 1974 HEPATITIS C SCREENING HEPATITIS C SC ALBERTO [facility] Start: 1974 HIV SCREENING HIV SCREENING [facility] Start: 1968 Adult depression scr eening assessment DEPRESSION SCREENING [facility] Payers Date Payer Category Payer Unknown [employer] [id number] 2013-Present PPO 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 Laboy telephoned re: Mr. Lopes. States he has a rash around the incision. Looks like raised bumps. Warm to touch. Stated I would notify Dr. Ramirez's nurse. Paged nurse. Shazia Cisse [place] documented in this encounter [facility] Advance Directives Documents on File Type Date Recorded Patient Executive Meeting Manager Expl anation Advance Directive(s) 04/13/2013 7:40 PM Additional Source Comments Source Comments (unrecognize d section and content) In the event this informatio n is protected by the Federal Confidentiality of Alcohol and Drug Abuse Patient Records regulations: The Federal rules restrict any use of the information to criminally investigate or prosecute any alcohol or drug abuse patient.[facility] FOR RECORDS PERTAINING TO PATIENTS WHO ARE [...] BE BASED ON THE PRIMARY CLINICAL RECORDS. [facility]. provides no warranty or guarantee of the accuracy or completeness of information in this document.
[2023-05-29] MEDS: 0.9% Normal Saline (1000mL) 1,000 ML 125 ML IV ×2 (10:17→18:38)
[2023-05-29] MEDS: Ciprofloxacin 400 MG/200 ML BAG 200 MG IV (13:54)
[2023-05-29] MEDS: Flu Vacc QS2023-24(65YR UP)/PF 240 MCG/0.7 ML Syringe IM (13:54)
[2023-05-29] MEDS: Docusate Sodium 100 MG Capsule 200 MG PO (23:03)
[2023-05-30] MEDS: Ciprofloxacin 400 MG/200 ML BAG 200 MG IV (02:07)
[2023-05-30] MEDS: 0.9% Normal Saline (1000mL) 1,000 ML 125 ML IV (03:40)
[2023-05-30 04:00] VITALS: BP 113/64; PULSE 73; RESP 16; TEMP 36.3; O2SAT 96
[2023-05-30 08:13] VITALS: BP 115/69; PULSE 78; RESP 16; TEMP 36.6; O2SAT 96
--- NOTE | 2023-05-30 08:44 | NURSING ---
Crook removed per Dr. Sargent 30cc removed from balloon. Pt denies any discomfort during this time. call light within reach. Urinal in bathroom to measure urine output
--- NOTE | 2023-05-30 08:45 | PCM.PN.GU ---
Subjective Subjective Status post TURP doing well urine is clear SUJIT Crook this morning voiding trial if he is able to urinate okay go home without a catheter Objective Data Objective Data Vital Signs: Vital Signs Temp Pulse Resp BP Pulse Ox O2 Del Method 98 F 78 16 115/69 96 Room Air 05/30/23 08:13 05/30/23 08:13 05/30/23 08:13 05/30/23 08:13 05/30/23 08:13 05/30/23 08:15 Oxygen Delivery Method Room Air Weight: 78.2 kg Body Mass Index (BMI) 25.4 Intake & Output: Intake and Output for Last 24 Hours 05/28/23 05/29/23 05/30/23 23:59 23:59 23:59 Intake Total 2250.09 / 2250.09 1300.00 / 1300.00 Output Total 1999 4900 / 4900 Balance 250.09 / 250.09 -3600.00 / -3600.00
[2023-05-30] MEDS: Docusate Sodium 100 MG Capsule 200 MG PO (08:48)
--- NOTE | 2023-05-30 09:25 | CASEMGMT ---
DORA CM in to complete CABRAL form with patient. RN AMALIA explained CABRAL form to patient, patient voiced understanding. Patient signed CABRAL form and filed in chart. Patient provided with copy of signed CABRAL form. Patient had no further questions or concerns.
[2023-05-30 11:42] VITALS: BP 134/74; PULSE 73; RESP 16; TEMP 36.3; O2SAT 100
--- NOTE | 2023-05-30 14:11 | NURSING ---
Pt urinated 295 out pink with hematuria in it. Denies any discomfort while urinating. Notified Dr. Sargent that patient has not been able to urinate earlier and has had 295 output and that this nurse bladder scan and had 751 in bladder did not want this nurse to put in a sesay. Okay to discharge patient home.
== END 2023-05-30 14:15 | disposition home or self-care (01) ==
LOC: SDC 08:56 → MS3 08:56
PROVIDERS: Admitting Provider Urology; PCP Family Medicine; Referring Provider Urology; Visit Provider Urology
PROC: 0VT08ZZ Resection of Prostate, Via Natural or Artificial Opening Endoscopic (ICD-10-PCS; CPT 52601; principal; 2023-05-29 08:40)
DX: N40.1 Benign prostatic hyperplasia with lower urinary tract symptoms (principal); N13.8 Other obstructive and reflux uropathy; R33.8 Other retention of urine; R13.10 Dysphagia, unspecified; Z23 Encounter for immunization
CPT/HCPCS: 52601; 88305; 93005; 94668; 96361; 96365; 96366; 99221; G0008; J7030; J7120; 90662; G0378; J0744; J2405

== ENCOUNTER → 2023-09-03 | Outpatient (CLI) | payer MEDICARE, OTHER, SELFPAY ==
[2023-09-03 08:38] LABS: Bacteria 0 SEEN /hpf (None Seen)
[2023-09-03 10:33] LABS: Absolute Lymphocyte Count 1.71 X10^3/uL (0.83-4.51); Absolute Neutrophil Count 2.9 X10^3/uL (2.0-7.7); Basophil# 0.04 X10^3/uL; Basophil% 0.8 % (0-1); Eosinophil# 0.21 X10^3/uL; Hematocrit 46.5 % (40-54); Hemoglobin 15.4 g/dL (13.0-16.5); Lymphocyte # 1.71 X10^3/ul (0.83-4.51); Lymphocyte % 32.6 % (19-41); Mean Corp Hgb Conc 33.1 g/dL (32-36); Mean Corpuscular Hgb 30.7 pg (27.0-32.0); Mean Corpuscular Volume 92.8 fL (80-94); Mean Platelet Vol. 9.3 fl (6.2-12.0); Monocyte# 0.43 X10^3/uL; Monocyte% 8.2 % (0-10); NRBC Flagged by Analyzer 0 % (0-5); Neutrophil # 2.85 X10^3/uL (2.7-7.7); Neutrophil % 54.2 % (47-70); Platelet Count 228 K/mm3 (150-450); RBC Distribution Width CV 12.1 % (11.6-14.6); RBC Distribution Width SD 41.6 fl (35.1-43.9); Red Blood Count 5.01 M/mm3 (4.6-6.2); White Blood Count 5.3 K/mm3 (4.4-11.0)
[2023-09-03 10:38] LABS: Color, Urine Yellow (Yellow); Glucose, Dipstick Normal (Normal); Ketone-Dipstick Negative (Negative); Leukocyte Esterase-Dipstick Negative /ul (Negative); Nitrite-Dipstick Negative (Negative); Occult Blood-Urine 25 /ul (Negative); Protein-Dipstick 15 mg/dl (Negative); Urine Bilirubin Dipstick Negative (Negative); Urine Clarity Sl. Cloudy (Clear); Urine Urobilinogen Normal (Normal)
[2023-09-03 10:50] LABS: Mucous, Urine RARE /hpf (<or=2+); Red Blood Cells-Urine 0-5 SEEN /hpf (0-5); Squamous Epithelial Cells - UA 0-5 SEEN /hpf (0-5); White Blood Cells 0-5 SEEN /hpf (0-5)
[2023-09-03 11:17] LABS: ALB/GLOB Ratio 1.1 RATIO (0.9-2.4); AST(SGOT) 25 U/L (15-37); Alanine Aminotransfer ALT/SGPT 23 U/L (16-61); Albumin, Serum 3.6 g/dL (3.2-5.0); Alkaline Phosphatase 58 U/L (45-117); Anion Gap 4 (5-15); BUN 14 mg/dL (7-18); BUN/Creat Ratio 15.2 RATIO (10-20); Calcium,Total 8.7 mg/dL (8.5-10.1); Chloride 107 mmol/L (98-107); Cholesterol 198 mg/dL (200); Creatinine, Serum 0.92 mg/dL (0.70-1.30); EST Glomerular Filtration Rate 87 mL/min (>60); Est Glom Filt Rate - Afr Amer 105 mL/min (>60); Globulin 3.2 g/dL (2.2-4.2); Glucose 82 mg/dL (74-106); High Density Lipoprotein 49 mg/dL; Potassium 3.8 mmol/L (3.5-5.1); Protein, Total 6.8 g/dL (6.4-8.2); Sodium Level 141 mmol/L (136-145); Thyroid Stim Hormone (TSH) 2.21 uIU/mL (0.358-3.74); Triglycerides 89 mg/dL; Very Low Density Lipoprotein 18 mg/dL (5-40)
== END | disposition home or self-care (01) ==
LOC: LAB.FUTURE 08:34 → MFPLAB 08:40
PROVIDERS: PCP Family Medicine; Visit Provider Family Medicine
DX: Z00.00 Encounter for general adult medical examination without abnormal findings (principal); E03.9 Hypothyroidism, unspecified; D50.9 Iron deficiency anemia, unspecified; Z13.220 Encounter for screening for lipoid disorders
CPT/HCPCS: 36415; 80053; 80061; 81001; 84443; 85025

== ENCOUNTER → 2023-10-15 | Outpatient (CLI) | payer MEDICARE, OTHER, SELFPAY ==
[2023-10-15 09:46] LABS: PSA,Total- Diagnostic 6.75 ng/mL (0.0-4.0)
== END | disposition home or self-care (01) ==
PROVIDERS: PCP Family Medicine; Referring Provider Urology; Visit Provider Urology
DX: R97.20 Elevated prostate specific antigen [PSA] (principal)
CPT/HCPCS: 36415; 84153

== ENCOUNTER → 2024-10-17 | Outpatient (CLI) | payer MEDICARE, OTHER, SELFPAY ==
[2024-10-17 09:52] LABS: PSA,Total- Diagnostic 6.12 ng/mL (0.00-4.00)
== END | disposition home or self-care (01) ==
LOC: LAB 08:46
PROVIDERS: PCP Family Medicine; Referring Provider Urology; Visit Provider Urology
DX: N40.1 Benign prostatic hyperplasia with lower urinary tract symptoms (principal)
CPT/HCPCS: 36415; 84153

== ENCOUNTER → 2025-01-26 | Outpatient (CLI) | payer MEDICARE, OTHER, SELFPAY ==
--- NOTE | 2025-01-26 10:14 | ST.MBS ---
Modified Barium Swallow Patient Information Study Date: 01/26/25 Study Time: 09:25 Direct Billable Minutes: 71 Total Minutes procedure & reportin Diagnosis: Dysphagia R13.10; Esophageal dysmotility K22.4 Referring Physician: Vita Viveros Reason for Referral: Objectively assess swallow function, assess risk for aspiration, and determine recommendations for least restrictive diet textures and compensatory strategies to improve safety of swallow. Medical History: [facility] OV 08/23/2024: Pt followed up for dysphagia and globus sensation. LISA Sykes concerned for silent reflux and placed the patient on omeprazole and recommended patient for this MBSS. Hx of esophageal testing at [facility]: 05/16/2020 Esophagram IMPRESSION: Normal plain film x-ray examination (barium swallow) of the esophagus. 05/30/2020 EGD Impression: - Z-line regular, 42 cm from the incisors. No specimens collected. - Normal stomach. Biopsied. - Normal examined duodenum. No specimens collected. Per patient, he has experienced episodic sensation of foods becoming caught in his lower throat/upper esophagus for the past 4-5 years, ~1X per month. He consumes regular textures / thin liquids, but intermittently rice or shredded meats are difficult to swallow. When these foods feel stuck, he will sometimes regurgitate them. A liquid wash w/ water or carbonated beverage is not helpful, and he will regurgitate the liquids sometimes, too. He will occ have a coughing spell w/ peanuts or grainy cereal. Associated symptoms of dysphagia are hiccups. He denies odynophagia, hx of PNA. He reports no formal GERD diagnosis, but he is taking omeprazole as recommended by [facility]. He reports hx of gastritis. Dry cough intermittently at baseline, which he attributes to his seasonal allergies. Medical History Loss of hearing Wears glasses Alcohol use Indwelling urethral catheter present Prostate disease Low iron Injury of back Non-smoker Dysphagia Current Diet Ordered: Regular textures / Thin liquids Dentition: WNL and Natural Teeth Mental Status: WNL Respiratory Status: Oxygenating on Room Air Penetration-Aspiration Scale Penetration-Aspiration Scale: OBJECTIVE ASSESSMENT OF SWALLOW FUNCTION (QUANTITATIVE ? PER TRIAL): PENETRATION / ASPIRATION SCALE (ROQUE): 1 = does not enter airway 2 = enters airway/above vocal folds/ejected 3 = enters airway/above vocal folds/not ejected 4 = enters airway/contacts vocal folds/ejected 5 = enters airway/contacts vocal folds/not ejected 6 = enters airway/below vocal folds/ejected 7 = enters airway/below vocal folds/not ejected despite effort 8 = enters airway/below vocal folds/no effort VIDEOFLOROSCOPIC SCALE SCORE (ROQUE): Grade I = aspiration of material that has penetrated into the laryngeal vestibule, intact cough reflex Grade II = aspiration < 10 % of the bolus, intact cough reflex Grade III = aspiration of < 10 % of the bolus, reduced cough reflex or aspiration of > 10 % of the bolus, intact cough reflex Grade IV = aspiration of > 10 % of the bolus, reduced cough reflex Penetration-Aspiration Scale Score Thin Liquid via teaspoon: Result: 2= enter airway/above vocal folds/ejected Thin Liquid via large single sip: cup: Result: 2= enter airway/above vocal folds/ejected Thin Liquid via sequential sips: cup: Result: 2= enter airway/above vocal folds/ejected Comment: Esophageal screen - Mild retention in the lower esophagus w/ minimal retrograde flow remaining well below the UES. Pudding via teaspoon: Result: 1= does not enter airway Comment: Esophageal screen - Retention throughout the esophagus. Pt is not sensate of esophageal retention of pudding. Thin Liquid via sequential sips:straw: Result: 2= enter airway/above vocal folds/ejected Comment: Esophageal screen - Two liquid washes somewhat cleared esophageal retention of pudding from previous trial. Third liquid wash cleared additional retention of pudding. 1/2 Cookie: Result: 1= does not enter airway Comment: Two liquid washes somewhat cleared esophageal retention of pudding from previous trial. Liquid washes X2 provided during the screen, which mostly cleared retention of cookie through the LES. Oral Phase Labial Seal: No Labial Escape Tongue Control During Bolus Hold: Posterior escape of greater than half of bolus (sequential thin) Bolus Preparation/Mastication: Timely and efficient chewing and mashing Bolus Transport/Lingual Motion: Brisk tongue motion Oral Residue: Trace residue lining oral structures Pharyngeal Phase Initiation of Pharyngeal Swallow: Bolus head in pyriforms (sequential thin) Soft Palate Elevation: Trace column of contrast/air between soft palate and pharyngeal wall Laryngeal Elevation: Comp. Superior move thyroid cart w/comp. apprx arytenoid cart-epig pet Anterior Hyoid Excursion: Partial anterior movement Epiglottic Movement: Complete inversion Laryngeal Vestibule Closure at Height of Swallow: Incomplete; narrow column of air/contrast in laryngeal vestibule Pharyngeal Stripping Wave: Present - complete Pharyngoesophageal Segment Opening: Complete distension and complete duration; no obstruction of flow Tongue Base Retraction: Trace column of contrast between tongue base & post. pharyngeal wall Pharyngeal Residue: Trace residue within or on pharyngeal structures Esophageal Phase Esophageal Clearance: Esophageal retention w/ retrograde flow below pharyngoesophageal seg. Diagnosis/Impression Diagnosis: Oropharyngeal swallow function grossly WNL; Esophageal dysphagia R13.14 MBS Impressions: Oropharyngeal swallow function is grossly WNL. Posterior loss to the pharynx w/ sequential sips. Trace laryngeal penetration w/ complete ejection after the swallow w/ some liquid trials. No aspiration observed. Trace pharyngeal residues. The esophageal phase is marked by... -Mild retention of sequential sips of thin liquids in the lower esophagus w/ minimal retrograde flow remaining well below the UES. -Retention of pudding throughout the esophagus. Pt is not sensate of esophageal retention of pudding. Three liquid washes mostly cleared esophageal retention of pudding. -Retention of cookie throughout the esophagus. Two liquid washes mostly cleared retention of cookie through the LES. Recommendations Diet: Regular Textures (Moisten Dry Textures) and Thin Liquids Comment: If sensation of retention, reflux, or retrograde flow despite use of frequent liquid wash, STOP meal and resume at a later time. Compensatory Strategies: Small Bites, Small Sips, Slow Rate, Alternate bites/solids and sips/liquids (Take 1-2 sips after every 1-2 bites) and Sitting upright (During and 60 min after a meal) Recommend Repeat Modified Barium Swallow: No Need for Skilled Speech Therapy Services: No Recommended Referrals: GI Consult (Continue to follow w/ [facility] for management of esophageal dysphagia.) Education Completed: 1. Described result of evaluation. Status Active ST Patient: Active Contact Information [facility] Speech Therapy:: Fanta Bruno M.A. [facility]-PMO MANAGER Speech-Language Pathologist [facility] [address] [place] [address] [email or web address] [phone]
== END | disposition home or self-care (01) ==
LOC: RAD 09:05
PROVIDERS: PCP Family Medicine
DX: K22.4 Dyskinesia of esophagus (principal)
CPT/HCPCS: 74230; 92611

== ENCOUNTER 2025-04-25 05:22 | Day surgery (SDC) | payer MEDICARE, OTHER, SELFPAY ==
--- OUTSIDE RECORDS SUMMARY | 2025-04-25 05:24 | XMS RPT_ITS | CCD ---
Author Organization [facility] Care Team Providers Care Spindle Tester Name Role Phone Ignacio Schmidt Primary Care Provider Dr. Ignacio Delarosa Primary Care Provider Dr. Hernando Watt Attending Provider Dr. Aravind Barriga Referring Provider [phone] [place] ANDA, Dr. Ignacio Flaherty Primary Care Provider [place] ANDA, Dr. Ignacio Flaherty Referring Provider Felice POWER SWEEPER OPERATOR-C, Vita Attending Provider Arie DE ANDA, Dr. Raul Vargas Attending Provider Arie DE ANDA, Dr. Raul Vargas Referring Provider [place] DE ANDA, Dr. Ignacio Flaherty Primary Care Physician Arie DE ANDA, Dr. Raul Vargas Attending Physician Felice POWER SWEEPER OPERATOR-C, Vita Attending Physician Felice POWER SWEEPER OPERATOR-C, Vita Referring Provider Vita Viveros Attending Unavailable Felice, Vita Referring Unavailable Ignacio Delarosa E Primary Care Unavailable Raul Sargent Attending Unavailable Raul Sargent Referring Unavailable Ignacio Delarosa Primary Care Unavailable Schinner, Ignacio E Referring Unavailable Viveros, Vita Attending Unavailable Ignacio Delarosa E Primary Care Unavailable Schinner, Ignacio E Primary Care Unavailable Schinner, Ignacio E Referring Unavailable Viveros, Vita Attending Unavailable Schinner, Ignacio E Referring Unavailable Janice, Surya Attending Unavailable [place] DE ANDA, Dr. Ignacio Flaherty Primary Care Physician Felice POWER SWEEPER OPERATOR-C, Vita Attending Physician Viveros POWER SWEEPER OPERATOR-C, Vita Referring Provider Dr. Ignacio Delarosa MD Referring Provider Friend Dr. Surya BRIGGS Attending Physician Allergies Allergy Classification Reported Allergen(s) Allergy Type Date of Onset Reaction(s) Facility Penicillins (antibiotic) (1 source) Amoxicillin Drug Allergy 3 Rash [facility] (8 sources) Amoxicillin Drug Allergy 1 [facility] (8 sources) Sulfamethoxazole Drug Allergy 1 [facility] (8 sources) Trimethoprim Drug Allergy 1 [facility] (1 source) Amoxicillin Drug Allergy 5 [facility] (1 source) Sulfamethoxazole Drug Allergy 5 [facility] (1 source) Trimethoprim Drug Allergy 5 [facility] Medications Completed/Discontinued Medications Medication Drug Class(es) Dates Sig (Normalized) Sig (Original) ciprofloxacin 500 mg oral tablet (5 sources) Quinolone Antimicrobial Start: 05-29-2023 End: 06-14-2024 take 1 tablet by mouth twice daily Ciprofloxacin Hcl (Cipro) 500 mg tablet Discontinued 500 mg PO TWICE A DAY 14 May 29, 2023 12:00am June 14, 2024 7:02am ibuprofen 600 mg oral tablet (5 sources) Nonsteroidal Anti-inflammatory Drug Start: 05-29-2023 End: 06-14-2024 take 1 tablet by mouth every six hours as needed for pain Ibuprofen 600 mg tablet Discontinued 600 mg PO EVERY 6 HOURS as needed for fever or pain 20 May 29, 2023 12:00am June 14, 2024 7:02am omeprazole 20 mg delayed release oral capsule (20 sources) Proton Pump Inhibitor Start: 06-14-2024 End: 01-02-2025 take 1 capsule by mouth once daily Omeprazole 20 mg capsule,delayed release(DR/EC) Discontinued 20 mg PO daily 30 0 August 23, 2024 7:13am January 02, 2025 8:01am Start: 03-10-2024 End: 06-14-2024 take 1 capsule by mouth twice daily Omeprazole 20 mg capsule,delayed release(DR/EC) Discontinued 20 mg PO TWICE A DAY 60 2 March 10, 2024 7:49am June 14, 2024 7:03am Start: 03-02-2024 End: 03-10-2024 take 1 capsule by mouth once daily Omeprazole 20 mg capsule,delayed release(DR/EC) Discontinued 20 mg PO daily March 01, 2024 11:00pm March 10, 2024 7:50am Start: 05-23-2020 End: 06-06-2020 take 1 capsule by mouth once daily Omeprazole 40 mg capsule,delayed release(DR/EC) Discontinued 40 mg PO DAILY May 23, 2020 12:00am June 06, 2020 8:59am Problems Active Problems Problem Classification Problem Date Documented Da te Episodic/Chronic Esophageal disorders (4 sources) Esophageal dysmotility; Translations: [Dyskinesia of esophagus] Onset: 02-06-2025 01-02-2025 Chronic Hyperplasia of prostate (1 source) Benign prostatic hyperplasia with lower urinary tract symptoms; Translations: [Benign prostatic hyperplasia with lower urinary tract symptoms] Onset: 10-21-2024 Chronic Other gastrointestinal disorders (5 sources) Dysphagia; Translations: [Dysphagia, unspecified] 03-10-2024 Episodic Other upper respiratory disease (4 sources) Feeling of lump in throat; Translations: [Globus sensation] 08-23-2024 Episodic Past or Other Problems Problem Classification Problem Date Documented Da te Episodic/Chronic Deficiency and other anemia (1 source) Iron deficiency anemia; Translations: [Iron deficiency anemia, unspecified] Onset: 03-09-2013 Episodic Fracture of lower limb (3 sources) Fracture of distal end of tibia; Translations: [Unspecified fracture of lower end of unspecified tibia, initial encounter for closed fracture] Onset: 02-28-2013 Episodic Results Test Name Value Interpretation Reference Range Facility Gastroenterology Visit Repor ton 03-01-2025 Gastroenterology Visit Report [facility] Gastroenterology [address] [place] [address] OFFICE VISIT Date of Service: 03/01/25 MR#: [id number] Acct: [id number] Name: MELANIA LABOY Rep #: [id number] : 1955 Provider: Surya Camacho DO Age/Sex: 69/M [place] [facility] [place]: Signed Intake Vital Signs 05/29/23 09:56 Height 5 ft 9 in Intake Visit Reasons: Test Result Allergies amoxicillin (Amoxicillin) Allergy (Verified 08/23/24 07:56) Rash sulfamethoxazole (From Bactrim) Allergy (Verified 08/23/24 07:56) Rash trimethoprim (From Bactrim) Allergy (Verified 08/23/24 07:56) Rash Medications ???Medication ???Instructions ???Recorded ???Confirmed ???Type omeprazole 20 mg capsule,delayed 20 mg PO QDAY #90 caps 01/02/25 Rx release Have you fallen in the past year?: No Nurse's Note: Pt was scheduled for EGD on 04.25.25 at the end of their appt today. Reviewed prep instructions and which medications to hold prior to procedure with pt in office. A paper copy of EGD prep instructions were given to pt. Pt denies any questions or concerns at this time. [facility] Medical History Loss of hearing Wears glasses Alcohol use Indwelling urethral catheter present Prostate disease Low iron Injury of back Non-smoker Dysphagia Surgical History Hx of esophagogastroduodenoscopy History of ankle surgery History of open reduction and internal fixation (ORIF) procedure History of appendectomy History of colonoscopy ( 03/2020) Family History Father Heart disease Myocardial infarction Rheumatic fever Mother COPD (chronic obstructive pulmonary disease) Brother Cancer lung Social History Smoking Status: Never smoker HPI HPI Details: MELANIA LABOY, is a 69-year-old gentleman, reports a several-year history of difficulty swallowing solids. * He underwent a barium esophagram in 2020 that showed a narrowing in the distal portion of his esophagus. * Recently, he had an evaluation by a speech-language pathologist, during which he had difficulty swallowing different food consistencies, noting that pudding had trouble moving into his stomach. * His symptoms improved in the past while on omeprazole.???No reports of fever or weight loss. Reports dysphagia to solids for several years, now progressing to liquids as evidenced by difficulty with pudding. Reports improved symptoms with omeprazole in the past. ???No history of smoking. No family history of esophageal cancer. * Diagnostic Data: * Barium Esophagram (2020):???Demonstrated a narrowing in the distal esophagus. * Speech Pathology Evaluation (Recent):???Showed difficulty moving pudding into the stomach, indicating an issue with liquid swallowing in addition to the long-standing solid food dysphagia. pt reports that he is feeling well overall and denies GI symptoms of concern at this time. Pt reports that he has not had any symptoms or issues since December. Is here to review results from barium swallow study. Pt continues with Omeprazole 20mg daily. ROS Const Constitutional: No fatigue, fever(s) or weight change ENT ENT: No difficulty swallowing Gastro GI: No abdominal pain, belching, bloating, change in bowel habits, change in stool character, coffee ground emesis, constipation, cramping, diarrhea, heartburn, difficulty swallowing, feeling full early, excessive flatus, incontinent of stools, Vomiting blood/hematemesis, Blood in stool, loose stools, Black,tarry stools, nausea/dyspepsia, pain with swallowing, vomiting or other Musc Musculoskeletal: No joint pain Skin Skin: No yellowing of the eye or itchy eyes Psych Psychiatric: No anxiety and No depression Endo Endocrine: No fatigue or weight change Aller/Imm Allergy/Immunologic: No itchy eyes Fam/Lymp Hematologic/Lymphatic: No easy bleeding or easy bruising Exam Const General: cooperative, healthy appearing, comfortable, no acute distress and well groomed Nutritional Appearance: average body habitus Orientation: alert and oriented x3 [facility] Head: normal to inspection Ears: hearing grossly normal bilaterally Nose: external nose normal Face and sinus: normal facial exam and face symmetric Eyes General: appearance normal, both eyes and all related structures Sclera: sclerae normal Neck Neck: normal visual inspection and full ROM Chest Chest palpation inspection: normal inspection of the chest Resp Effort Inspection: normal respiratory effort, able to speak in complete sentences and symmetric chest movement GI Inspection: normal to inspection Auscultation: normal bowel sounds Palpation (more content not included)... Normal [facility] Modified Barium Swallow Stud n 01-26-2025 Modified Barium Swallow Study [facility] Speech Pathology [address] [place] [address] Modified Barium Swallow Study MR#: [id number] Acct: [id number] Name: MELANIA LABOY Rep #: [id number] : 1955 69 From: Fanta Bruno M.A., [facility] Modified Barium Swallow Patient Information Study Date: 01/26/25 Study Time: 09:25 Direct Billable Minutes: 71 Total Minutes procedure reportin Diagnosis: Dysphagia R13.10; Esophageal dysmotility K22.4 Referring Physician: Vita Viveros Reason for Referral: Objectively assess swallow function, assess risk for aspiration, and determine recommendations for least restrictive diet textures and compensatory strategies to improve safety of swallow. Medical History: [facility] OV 08/23/2024: Pt followed up for dysphagia and globus sensation. LISA Sykes concerned for silent reflux and placed the patient on omeprazole and recommended patient for this MBSS. Hx of esophageal testing at [facility]: 05/16/2020 Esophagram IMPRESSION: Normal plain film x-ray examination (barium swallow) of the esophagus. 05/30/2020 EGD Impression: - Z-line regular, 42 cm from the incisors. No specimens collected. - Normal stomach. Biopsied. - Normal examined duodenum. No specimens collected. Per patient, he has experienced episodic sensation of foods becoming caught in his lower throat/upper esophagus for the past 4-5 years, 1X per month. He consumes regular textures / thin liquids, but intermittently rice or shredded meats are difficult to swallow. When these foods feel stuck, he will sometimes regurgitate them. A liquid wash w/ water or carbonated beverage is not helpful, and he will regurgitate the liquids sometimes, too. He will occ have a coughing spell w/ peanuts or grainy cereal. Associated symptoms of dysphagia are hiccups. He denies odynophagia, hx of PNA. He reports no formal GERD diagnosis, but he is taking omeprazole as recommended by [facility]. He reports hx of gastritis. Dry cough intermittently at baseline, which he attributes to his seasonal allergies. Medical History Loss of hearing Wears glasses Alcohol use Indwelling urethral catheter present Prostate disease Low iron Injury of back Non-smoker Dysphagia Current Diet Ordered: Regular textures / Thin liquids Dentition: WNL and Natural Teeth Mental Status: WNL Respiratory Status: Oxygenating on Room Air Penetration-Aspiration Scale Penetration-Aspiration Scale: OBJECTIVE ASSESSMENT OF SWALLOW FUNCTION (QUANTITATIVE ??? PER TRIAL): PENETRATION / ASPIRATION SCALE (ROQUE): 1 = does not enter airway 2 = enters airway/above vocal folds/ejected 3 = enters airway/above vocal folds/not ejected 4 = enters airway/contacts vocal folds/ejected 5 = enters airway/contacts vocal folds/not ejected 6 = enters airway/below vocal folds/ejected 7 = enters airway/below vocal folds/not ejected despite effort 8 = enters airway/below vocal folds/no effort VIDEOFLOROSCOPIC SCALE SCORE (ROQUE): Grade I = aspiration of material that has penetrated into the laryngeal vestibule, intact cough reflex Grade II = aspiration < 10 % of the bolus, intact cough reflex Grade III = aspiration of < 10 % of the bolus, reduced cough reflex or aspiration of > 10 % of the bolus, intact cough reflex Grade IV = aspiration of > 10 % of the bolus, reduced cough reflex Penetration-Aspiration Scale Score Thin Liquid via teaspoon: Result: 2= enter airway/above vocal folds/ejected Thin Liquid via large single sip: cup: Result: 2= enter airway/above vocal folds/ejected Thin Liquid via sequential sips: cup: Result: 2= enter airway/above vocal folds/ejected Comment: Esophageal screen - Mild retention in the lower esophagus w/ minimal retrograde flow remaining well below the UES. Pudding via teaspoon: Result: 1= does not enter airway Comment: Esophageal screen - Retention throughout the esophagus. Pt is not sensate of esophageal retention of pudding. Thin Liquid via sequential sips:straw: Result: 2= enter airway/above vocal folds/ejected Comment: Esophageal screen - Two liquid washes somewhat cleared esophageal retention of pudding from previous trial. Third liquid wash cleared additional retention of pudding. 1/2 Cookie: Result: 1= does not enter airway Comment: Two liquid washes somewhat cleared esophageal retention of pudding from previous trial. Liquid washes X2 provided during the screen, which mostly cleared retention of cookie through the LES. Oral Phase Labial Seal: No Labial Escape Tongue Control During Bolus Hold: Posterior escape of greater than half of bolus (sequential thin) Bolus Preparation/Mastication: Timely and efficient chewing and mashing Bolus Transport/Lingual Motion: Brisk tongue motion Oral Residue: Trace residue lining oral structures Pharyngeal Phase Initiation of Pharyngeal Swallow: Bolus head in pyriforms (sequ (more content not included)... Normal [facility] PSA,Total- Diagnosticon 06-0 PSA, DIAGNOSTIC 6.12 ng/mL High 0.00-4.00 [facility] Comment on above: Result Comment: This test was performed using the [facility] tPSA method. Measured values of a patient??sample can vary depending on the testing procedure used. PSA values determined on patient samples by different testing procedures cannot be used interchangeably. If there is a change in PSA assays while monitoring therapy, sequential testing should be performed to confirm baseline values. Performed By: #### L [id number] #### [facility] Laboratory [address] [place], [address] Gastroenterology Visit Repor ton 08-23-2024 Gastroenterology Visit Report [facility] Gastroenterology [address] [place] [address] OFFICE VISIT Date of Service: 08/23/24 MR#: [id number] Acct: [id number] Name: MELANIA LABOY Rep #: [id number] : 1955 Provider: LISA stanley Age/Sex: 69/M Location: [facility] Status: Signed Intake Vital Signs 05/29/23 09:56 Height 5 ft 9 in Intake Visit Reasons: 6 M FU Allergies amoxicillin (Amoxicillin) Allergy (Verified 08/23/24 07:56) Rash sulfamethoxazole (From Bactrim) Allergy (Verified 08/23/24 07:56) Rash trimethoprim (From Bactrim) Allergy (Verified 08/23/24 07:56) Rash Medications ???Medication ???Instructions ???Recorded ???Confirmed ???Type omeprazole 20 mg capsule,delayed 20 mg PO QDAY #30 caps 08/23/24 Rx release Have you fallen in the past year?: No PFSH Medical History Loss of hearing Wears glasses Alcohol use Indwelling urethral catheter present Prostate disease Low iron Injury of back Non-smoker Dysphagia Surgical History Hx of esophagogastroduodenoscopy History of ankle surgery History of open reduction and internal fixation (ORIF) procedure History of appendectomy History of colonoscopy ( 03/2020) Family History Father Heart disease Myocardial infarction Rheumatic fever Mother COPD (chronic obstructive pulmonary disease) Brother Cancer lung Social History Smoking Status: Never smoker HPI HPI Details: MELANIA LABOY, is a 69 M who presents to the office today for FU regarding dysphagia and globus sensation. His PCP placed him on omeprazole 20mg daily and that stopped all of the heartburn, but he continued to have dysphagia. He now denies difficulty chewing and swallowing, nausea, vomiting, abdominal pain, bloating, constipation, diarrhea, hematochezia, and melena. He reports food sensitivities to crab and lobster, with abdominal cramping, nausea, and vomiting after eating. Last EGD was 1.21 with regular z-line and normal stomach per report, but he states the surgeon placed him on omeprazole 40mg daily for gastritis for a short time. Last colonoscopy was 11. with a few small-mouth diverticula in the sigmoid colon and nonbleeding internal hemorrhoids. He reports recent TURP May 2023. At February we placed him on omeprazole 20mg PO BID, by June all of the dysphagia and globus sensation was gone and we reduced the omeprazole back to 20mg daily. ROS Const Constitutional: No chills, fatigue, fever(s) or weight change Eyes Eyes: No blurry vision or change in vision ENT ENT: No abnormal hearing or difficulty swallowing Resp Respiratory: Positive for cough Cardio Cardiology: No chest pain at rest, chest pain with exertion or leg pain with exertion Gastro GI: Positive for belching, bloating and excessive flatus; No abdominal pain, change in bowel habits, change in stool character, coffee ground emesis, constipation, cramping, diarrhea, heartburn, difficulty swallowing, feeling full early, incontinent of stools, Vomiting blood/hematemesis, Blood in stool, loose stools, Black,tarry stools, nausea/dyspepsia, pain with swallowing, vomiting or other Genitourinary Male: No difficulty urinating Musc Musculoskeletal: No joint pain or leg pain with exertion Skin Skin: No yellowing of the eye or itchy eyes Neuro Neurology: No abnormal hearing Psych Psychiatric: No anxiety and No depression Endo Endocrine: No cold intolerance, fatigue, heat intolerance or weight change Aller/Imm Allergy/Immunologic: No food intolerance or itchy eyes Fam/Lymp Hematologic/Lymphatic: No easy bleeding or easy bruising Exam Const General: cooperative, healthy appearing, comfortable, no acute distress and well groomed Nutritional Appearance: average body habitus Orientation: alert and oriented x3 [facility] Head: normal to inspection Ears: hearing grossly normal bilaterally Nose: external nose normal Face and sinus: normal facial exam and face symmetric Eyes General: appearance normal, both eyes and all related structures Sclera: sclerae normal Neck Neck: normal visual inspection and full ROM Chest Chest palpation inspection: normal inspection of the chest Resp Effort Inspection: normal respiratory effort, able to speak in complete sentences and symmetric chest movement GI Inspection: normal to inspection Auscultation: normal bowel sounds Palpation: soft and no hepatosplenomegaly Skin General: no rashes or lesions noted Neuro General: patient alert, patient oriented x3 and moves all extremities Cognition: normal cognition Speech: speech normal Gait: n (more content not included)... Normal [facility] Gastroenterology Visit Repor [facility] 03-10-2024 Gastroenterology Visit Report [facility] Gastroenterology [address] [place] [address] OFFICE VISIT Date of Service: 03/10/24 MR#: [id number] Acct: [id number] Name: MELANIA LABOY Rep #: [id number] : 1955 Provider: LISA stanley Age/Sex: 68/M [place] [facility] Status: Signed Intake Vital Signs 05/29/23 09:56 Height 5 ft 9 in Intake Visit Reasons: INDIGESTION Chief Complaint: Dysphagia with solid foods Allergies amoxicillin (Amoxicillin) Allergy (Verified 03/10/24 08:30) Rash sulfamethoxazole (From Bactrim) Allergy (Verified 03/10/24 08:30) Rash trimethoprim (From Bactrim) Allergy (Verified 03/10/24 08:30) Rash Medications ???Medication ???Instructions ???Recorded ???Confirmed ???Type ciprofloxacin HCl 500 mg tablet 500 mg PO BID #14 tabs 05/29/23 Rx (Cipro) ibuprofen 600 mg tablet 600 mg PO Q6H PRN fever or pain 05/29/23 Rx #20 tabs omeprazole 20 mg capsule,delayed 20 mg PO BID #60 caps 03/10/24 03/10/24 Rx release Have you fallen in the past year?: No PFSH Medical History (Updated 03/10/24 @ 09:09 by LISA Sykes) Loss of hearing Wears glasses Alcohol use Indwelling urethral catheter present Prostate disease Low iron Injury of back Non-smoker Dysphagia Surgical History Hx of esophagogastroduodenoscopy History of ankle surgery History of open reduction and internal fixation (ORIF) procedure History of appendectomy History of colonoscopy ( 03/2020) Family History Father Heart disease Myocardial infarction Rheumatic fever Mother COPD (chronic obstructive pulmonary disease) Brother Cancer lung Social History Smoking Status: Never smoker HPI HPI Chief Complaint: Dysphagia with solid foods Details: MELANIA LABOY, is a 68 M who presents to the office today for establishment with [facility] for complaints of food trapping in his esophagus three times this year. He states that one episode was dry chicken, one was dry roast beef, and once on apple skins. Each episode, he was talking and chewing, then swallowed and felt food stop prison down. He was always able to regurgitate the food out. He reports his PCP placed him on omeprazole 20mg daily and that has stopped all of the heartburn, but he has had one episode of dysphagia since starting it. He denies difficulty chewing, nausea, vomiting, abdominal pain, bloating, hematochezia, and melena. He denies knowing of any food sensitivities or allergies. Last EGD was 05.31 with regular z-line and normal stomach per report, but he states the surgeon placed him on omeprazole 40mg daily for gastritis for a short time. Last colonoscopy was 03.30 with a few small-mouth diverticuli in the sigmoid colon and nonbleeding internal hemorrhoids. He reports recent TURP this May. ROS Const Constitutional: No chills, fatigue, fever(s) or weight change Eyes Eyes: No change in vision ENT ENT: Positive for difficulty swallowing; No abnormal hearing Resp Respiratory: No cough Cardio Cardiology: No chest pain at rest, chest pain with exertion or leg pain with exertion Gastro GI: Positive for difficulty swallowing; No abdominal pain, belching, bloating, change in bowel habits, change in stool character, coffee ground emesis, constipation, cramping, diarrhea, heartburn, feeling full early, excessive flatus, incontinent of stools, Vomiting blood/hematemesis, Blood in stool, loose stools, Black,tarry stools, nausea/dyspepsia, pain with swallowing, vomiting or other Genitourinary Male: No difficulty urinating Musc Musculoskeletal: No joint pain or leg pain with exertion Skin Skin: No yellowing of the eye or itchy eyes Neuro Neurology: No abnormal hearing Psych Psychiatric: No anxiety and No depression Endo Endocrine: No cold intolerance, fatigue, heat intolerance or weight change Aller/Imm Allergy/Immunologic: No food intolerance or itchy eyes Fam/Lymp Hematologic/Lymphatic: No easy bleeding or easy bruising Exam Const General: cooperative, healthy appearing and comfortable Nutritional Appearance: average body habitus Orientation: alert [facility] [facility] Head: normal to inspection Ears: hearing grossly normal bilaterally Nose: external nose normal Face and sinus: normal facial exam and face symmetric Eyes General: appearance normal, both eyes and all related structures Sclera: sclerae normal Neck Neck: normal visual inspection and full ROM Neck mass: No Chest Chest palpation inspection: normal inspection of the chest Resp Effort Inspection: normal respiratory effort, able to speak in complete sentences and symmetric chest movement GI Inspection: normal to inspecti (more content not included)... Normal [facility] Absolute lymphocyte countOrd ered By: Ignacio Delarosa on 09-03-2023 Lymphocytes Auto (Unsp spec) [#/Vol] 1.71 10*3/uL 0.83-4.51 [facility] Automated lymphocyte count a s percentage of total leukocytesOrdered By: Ignacio Delarosa on 09-03-2023 Lymphocytes/100 WBC Auto (Unsp spec) 32.6 % 19-41 [facility] Basophil percentageOrdered B y: Ignacio Delarosa on 09-03-2023 Basophil percentage 0-5 SEEN /hpf 0-5 [facility] Basophils/100 WBC (Bld) 0.8 % 0-1 [facility] Bilirubin [Mass/Vol] 1.00 mg/dL 0.20-1.00 [facility] Comment on above: For patients on eltr ombopag therapy, use of Dimension Gobles TBIL is not recommended. Chloride [Moles/Vol] 107 mmol/L 98-107 [facility] Cholesterol [Mass/Vol] 198 mg/dL <200 [facility] Comment on above: <200 mg/dL Desirable 200-240 mg/dL Borderline >240 mg/dL High Risk Eosinophils/100 WBC (Bld) 4.0 % 0-5 [facility] Glucose [Mass/Vol] 82 mg/dL 74-106 [facility] Hemoglobin (Bld) [Mass/Vol] 15.4 g/dL 13.0-16.5 [facility] Monocytes/100 WBC (Bld) 8.2 % 0-10 [facility] Neutrophils (Bld) [#/Vol] 2.9 10*3/uL 2.0-7.7 [facility] Neutrophils/100 WBC (Bld) 54.2 % 47-70 [facility] Potassium [Moles/Vol] 3.8 mmol/L 3.5-5.1 [facility] Protein [Mass/Vol] 6.8 g/dL 6.4-8.2 [facility] Sodium [Moles/Vol] 141 mmol/L 136-145 [facility] Triglyceride [Mass/Vol] 89 mg/dL <199 [facility] Comment on above: The drugs N-Acetylcy steine and Metamizole may falsely depress this assay.Serum Triglycerides Reference Interval Normal <150 mg/dL Borderline high 150 - 199 mg/dL High 200 - 499 mg/dL Very High > or = 500 mg/dL WBC (Bld) [#/Vol] 5.3 10*3/uL 4.4-11.0 [facility] Bilirubin Test strip Ql (U)O rdered By: Ignacio Delarosa on 09-03-2023 Bilirubin Ql (U) Negative Negative [facility] Determination of erythrocyte mean corpuscular volume (MCV)Ordered By: Ignacio Delarosa on 09-03-2023 MCV (RBC) [Entitic vol] 92.8 fL 80-94 [facility] Erythrocyte distribution wid th ratioOrdered By: Ignacio Delarosa on 09-03-2023 Erythrocyte distribution width (RBC) [Ratio] 12.1 % 11.6-14.6 [facility] Erythrocyte distribution wid th standard deviationOrdered By: Ignacio Delarosa on 09-03-2023 Erythrocyte distribution width (RBC) [Entitic vol] 41.6 fL 35.1-43.9 [facility] Hematocrit Auto (Bld) [Volum e fraction]Ordered By: Ignacio Delarosa on 09-03-2023 Hematocrit (Bld) [Volume fraction] 46.5 % 40-54 [facility] Immature granulocytes/100 WB C Auto (Bld)Ordered By: Ignacio Delarosa on 09-03-2023 Immature granulocytes/100 WBC (Bld) 0.200 % 0.0-0.9 [facility] Comment on above: IG% - Immature Granu locytes (promyelocytes, myelocytes and metamyelocytes) > 1% indicates that a LEFT SHIFT is Present. Ketones Test strip Ql (U)Ord ered By: Ignacio Delarosa on 09-03-2023 Ketones Ql (U) Negative Negative [facility] Laboratory - Chemistry and C hemistry - challengeOrdered By: Ignacio Delarosa on 09-03-2023 Albumin/Globulin [Mass ratio] 1.1 {ratio} 0.9-2.4 [facility] ALP [Catalytic activity/Vol] 58 U/L 45-117 [facility] ALT [Catalytic activity/Vol] 23 U/L 16-61 [facility] Cholesterol in HDL [Mass/Vol] 49 mg/dL >40 [facility] Comment on above: The drugs N-Acetylcy steine and Metamizole may falsely depress this assay. Reference Range HDL <40 mg/dL Low HDL Cholesterol HDL >or= 60 mg/dL High HDL Cholesterol Cholesterol in LDL [Mass/Vol] 131 mg/dL 0-130 [facility] CO2 [Moles/Vol] 30.0 mmol/L 21.0-32.0 [facility] Globulin (S) [Mass/Vol] 3.2 g/dL 2.2-4.2 [facility] Urea nitrogen/Creatinine [Mass ratio] 15.2 mg/mg 10-20 [facility] Laboratory - Hematology and Cell countsOrdered By: Ignacio Delarosa on 09-03-2023 MCH (RBC) [Entitic mass] 30.7 pg 27.0-32.0 [facility] MCHC (RBC) [Mass/Vol] 33.1 g/dL 32-36 [facility] Nucleated RBC/100 WBC (Bld) [Ratio] 0 % 0-5 [facility] Platelet mean volume (Bld) [Entitic vol] 9.3 fL 6.2-12.0 [facility] Platelets (Bld) [#/Vol] 228 10*3/uL 150-450 [facility] Mucus LM Ql (Urine sed)Order ed By: Ignacio Delarosa on 09-03-2023 Mucus Ql (Urine sed) RARE /hpf [facility] Nitrite Test strip Ql (U)Ord ered By: Ignacio Delarosa on 09-03-2023 Nitrite Ql (U) Negative Negative [facility] No Panel InformationOrdered By: Ignacio Delarosa on 09-03-2023 Estimated GFR (MDRD) Amer 105 mL/min >60 [facility] Comment on above: GFR Calc Estimated GFR (MDRD) Non-Af Amer 87 mL/min >60 [facility] Comment on above: Non- GFR Calc Urine RBC 0-5 SEEN /hpf 0-5 [facility] VLDL Cholesterol 18 mg/dL 5-40 [facility] Protein Test strip Ql (U)Ord ered By: Ignacio Delarosa on 09-03-2023 Protein Ql (U) 15 mg/dl Negative [facility] RBC Auto (Bld) [#/Vol]Ordere d By: Ignacio Delarosa on 09-03-2023 RBC (Bld) [#/Vol] 5.01 10*6/uL 4.6-6.2 [facility] Serum or plasma calcium aaron urement (mass/volume)Ordered By: Ignacio Delarosa on 09-03-2023 Calcium [Mass/Vol] 8.7 mg/dL 8.5-10.1 [facility] Serum or plasma creatinine m easurement (mass/volume)Ordered By: Ignacio Delarosa on 09-03-2023 Creatinine [Mass/Vol] 0.92 mg/dL 0.70-1.30 [facility] Comment on above: The validity of the calculated GFR & GFRAA in patients over 70 years has not been determined. Clinical correlation is essential. Serum or plasma thyroid stim ulating hormone (TSH) measurement (units/volume)Ordered By: Ignacio Delarosa on 09-03-2023 TSH Qn 2.21 uIU/mL 0.358-3.74 [facility] Serum or plasma urea nitroge n measurement (mass/volume)Ordered By: Ignacio Delarosa on 09-03-2023 Urea nitrogen [Mass/Vol] 14 mg/dL 7-18 [facility] Squamous epithelial cells de tection in urine sediment by light microscopyOrdered By: Ignacio Delarosa on 09-03-2023 Epithelial cells.squamous LM Ql (Urine sed) 0-5 SEEN /hpf 0-5 [facility] Thin prep Papanicolaou smear with manual screeningOrdered By: Ignacio Delarosa on 09-03-2023 Thin prep Papanicolaou smear with manual screening 3.6 g/dL 3.2-5.0 [facility] Thin prep Papanicolaou smear with manual screening 25 U/L 15-37 [facility] Thin prep Papanicolaou smear with manual screening 4 5-15 [facility] Urine blood detectionOrdered By: Ignacio Delarosa on 09-03-2023 RBC Ql (U) 25 /ul Negative [facility] Urine clarityOrdered By: Jordan Delarosa on 09-03-2023 Clarity (U) Sl. Cloudy Clear [facility] Urine color determinationOrd ered By: Ignacio Delarosa on 09-03-2023 Color (U) Yellow Yellow [facility] Urine glucose detectionOrder ed By: Ignacio Delarosa on 09-03-2023 Glucose Ql (U) Normal mg/dl Normal [facility] Urine leukocyte esterase det ection by dipstickOrdered By: Ignacio Delarosa on 09-03-2023 Leukocyte esterase Test strip Ql (U) Negative Negative [facility] Urine pHOrdered By: Ignacio suh on 09-03-2023 pH (U) 7.0 [pH] 5.0 - 8.0 [facility] Urine sediment bacteria coun t by microscopy (number/high power field)Ordered By: Ignacio Delarosa on 09-03-2023 Bacteria LM.HPF (Urine sed) [#/Area] 0 /[HPF] None Seen [facility] Urine specific gravity measu rementOrdered By: Ignacio Delarosa on 09-03-2023 Specific gravity (U) [Rel density] 1.010 1.002-1.03 0 [facility] Urine urobilinogen measureme ntOrdered By: Ignacio Delarosa on 09-03-2023 Urobilinogen Ql (U) Normal mg/dl Normal [facility] No Panel InformationOrdered By: Raul Sargent on 05-12-2023 Prostate Specific Antigen Total 7.18 ng/mL 0.0-4.0 [facility] Comment on above: This test was perfor med using the TPSA assay method for theDimension chemistry system. Values obtained with differentassay methods cannot be used interchangably.When changing PSA assays in the course of monitoring apatient, additional sequential testing should be carriedout to confirm baseline values. No Panel Informationon 12-18 Prostate Specific Antigen Total 6.68 ng/mL 0.0-4.0 [facility] Work Phone: Comment on above: This test was perfor med using the TPSA assay method for theDimension chemistry system. Values obtained with differentassay methods cannot be used interchangably.When changing PSA assays in the course of monitoring apatient, additional sequential testing should be carriedout to confirm baseline values. Vital Signs Date Time Vital Sign Value Performing Clinician Alfonso ibanez 05-30-2023 11:42-0500 Body temperature 97.4 [degF] [facility] 05-30-2023 11:42-0500 Diastolic blood pressure 74 mm[Hg] [facility] 05-30-2023 11:42-0500 Heart rate 73 /min [facility] 05-30-2023 11:42-0500 Respiratory rate 16 /min [facility] 05-30-2023 11:42-0500 SaO2% (BldA) [Mass fraction] 100 % [facility] 05-30-2023 11:42-0500 Systolic blood pressure 134 mm[Hg] [facility] 05-29-2023 09:56-0500 Body height 175.26 cm [facility] 05-29-2023 09:56-0500 Body mass index (BMI) [Ratio] 25.4 kg/m2 [facility] 05-29-2023 09:56-0500 Body weight 78.2 kg [facility] Encounters Encounter Date Encounter Type Care Provider Facility Start: 03-01-2025 End: 03-01-2025 [facility] Work Phone: Start: 03-01-2025 End: 03-01-2025 ambulatory Ignacio Delarosa Facility:[facility] Start: 01-26-2025 End: 01-26-[address] Ignacio Delarosa MD Work Phone: -Radiology [facility] Start: 01-26-2025 End: 01-26-2025 Patient encounter procedure Vita GONZALEZ -Radiology [facility] Work Phone: Start: 01-26-2025 End: 01-26-2025 ambulatory Vita Viveros Facility:[facility] Start: 10-17-2024 End: 10-17-[address] Ignacio Delarosa MD Work Phone: [facility] Work Phone: Start: 10-17-2024 End: 10-17-[address] Raul Sargent MD -Laboratory Work Phone: Start: 10-17-2024 End: 10-17-2024 ambulatory Raul Sargent Facility:[facility] Start: 08-23-2024 End: 08-23-2024 Patient encounter procedure Vita GONZALEZ [facility] Work Phone: Start: 08-23-2024 End: 08-23-2024 ambulatory Ignacio Delarosa Facility:[facility] Start: 03-10-2024 End: 03-10-2024 ambulatory Ignacio Delarosa Facility:[facility] Start: 09-03-2023 End: 09-03-[address] Ignacio Delarosa Work Phone: [facility] Work Phone: Start: 09-03-2023 End: 09-03-[address] Ignacio Delarosa Work Phone: [facility] Start: 05-29-2023 End: 05-30-2023 Evaluation and management of inpatient [facility]-Medical Surgical 3 Work Phone: Start: 05-29-2023 End: 05-30-2023 observation encounter [facility] Work Phone: Start: 05-28-2023 End: 05-28-2023 Non-patient / Non-visit Dr. Ignacio Delarosa Work Phone: [facility] Work Phone: Start: 05-12-2023 End: 05-12-2023 ambulatory [facility] Work Phone: Start: 05-12-2023 End: 05-12-2023 Patient encounter procedure [facility] Work Phone: Start: 12-18-2021 End: 12-18-2021 Patient encounter procedure [facility] Start: 05-17-2013 End: 05-17-2013 Telephone encounter Torres Ramirez MD Work Phone: Orthopaedics Procedures Date Procedure Procedure Detail Performing Clinician Start: 01-26-[address] Ignacio pino MD Work Phone: Start: 10-17-2024 Assay of prostate sp ecific antigen total Dr. Ignacio Delarosa MD Work Phone: Comment on above: This test was perfor med using the [employer] tPSA method. Measured values of a patient sample can vary depending on the testing procedure used. PSA values determined on patient samples by different testing procedures cannot be used interchangeably. If there is a change in PSA assays while monitoring therapy, sequential testing should be performed to confirm baseline values. Start: 05-29-2023 Cysto,Transurethral Resection Prostate (Not Applicable) Plan of Treatment Date Care Activity Detail Author Start: 05-30-2023 Patient discharge [facility] Start: 05-30-2023 Removal of urinary catheter [facility] Start: 05-29-2023 Anesthesia transurethral resection of prostate ANESTH REMOVAL OF PROSTATE [facility] Start: 05-29-2023 Trurl electrosurg rescj prostate bleed complete PROSTATECTOMY (TURP) [facility] Start: 05-29-2023 Application of intermittent pneumatic compression device [facility] Start: 05-29-2023 Following clinical pathway protocol [facility] Start: 05-29-2023 Deep breathing and coughing exercises [facility] Start: 05-29-2023 Incentive spirometry [facility] Start: 05-29-2023 Provision of activity privileges [facility] Start: 05-29-2023 Admission procedure [facility] Start: 05-29-2023 Irrigation of urinary bladder [facility] Start: 05-29-2023 Measuring intake and output [facility] Start: 05-29-2023 Patient education [facility] Start: 05-29-2023 Taking patient vital signs [facility] Start: 05-29-2023 Vital signs measurements [facility] Start: 05-29-2023 End: 05-29-2023 [facility] Start: 01-09-2021 Influenza vaccination INFLUENZA (Season Ended) [facility] Start: 02-29-2016 DIABETES SCREEN DIABETES SCREEN [facility] Start: 2011 PROSTATE CANCER SCREENING DISCUSSION PROSTATE CANCER SCREENING DISCUSSION [facility] Start: 2006 Screening for malignant neoplasm of colon [facility] Start: 2006 SHINGRIX VACCINE (1 of 2) SHINGRIX VACCINE (1 of 2) [facility] Start: 1991 LIPID SCREEN LIPID SCREEN [facility] Start: 1975 Urine microalbumin profile DTAP,TDAP,TD (1 - Tdap) [facility] Start: 1974 HEPATITIS C SCREENING HEPATITIS C SCREENING [facility] Start: 1974 HIV SCREENING HIV SCREENING [facility] Start: 1968 Adult depression screening assessment DEPRESSION SCREENING [facility] Patient referral [facility] Work Phone: Immunizations Immunization Date Immunization Notes Care Provider Napoleon powell 05-29-2023 Influenza High-Dose Quadrivalent [facility] Payers Date Payer Category Payer Self-pay [id number] 2024 Medicare [id number] 2024 Unknown [id number] 2013 Unknown MMO MMO [employer]PER[employer] PLUS [id number] 2013-Present PPO [id number] Unknown [id number] Unknown [id number] Unknown [id number] Unknown [id number] Unknown [id number] Unknown [id number] Unknown [id number] Social History Date Type Detail Facility Start: 02-28-2013 End: 05-27-2023 Tobacco smoking status NHIS Never smoker [facility] Start: 02-28-2013 Tobacco use and exposure Never used [facility] Start: 02-28-2013 Alcohol intake Current non-dr catia designer of alcohol (finding) [facility] Start: 1955 Sex Assigned At Not on file C [facility] Start: 06-06-2020 End: 05-27-2023 Tobacco smoking status NHIS Unknown if ever smoked [facility] Start: 05-25-2020 Non-smoker [facility] Start: 1955 Sex Assigned At Male [facility] Sex Male [facility] Medical Equipment Procedure Code Equipment Code Equipment Original Text Equipment Identifier Dates Sjn-Wo-O-Kind Implant - [id number] Start: 03-10-2013 Comment on above: Description: 3.5mm L CP Medial Proximal Tibia Plate Right Wbx-Kf-B-Kind Implant - [id number] Start: 03-14-2013 Comment on above: Description: 7 hole anterolateral distal plate [id number] 7H ANTEROLAT DIST PLATE Fmk-Bo-J-Kind Implant - [id number] Start: 03-14-2013 Comment on above: Description: 3.5mm l cp low bend medial tibia plate 6 hole 135mm left [id number] 3.5MM LCP MED TIB PLATE Pin Fix 6mm Trnf x 225mm Orth - [id number] Start: 02-27-2013 Screw Bn 5mm 200mm Schnz Ss - [id number] Start: 02-27-2013 Screw Bn 3.5mm 30mm Lc Dcp Ss - [id number] Start: 03-10-2013 Screw Bn 3.5mm 32mm Lc Dcp Ss - [id number] Start: 03-10-2013 Screw Bn 3.5mm 36mm Lc Dcp Ss - [id number] Start: 03-10-2013 Screw Bn 3.5mm 38mm Dcp Lc Dcp - [id number] Start: 03-10-2013 Screw Bn 2.7mm 65mm Lcp Ss - [id number] Start: 03-10-2013 Screw Bn 3.5mm 80mm Lcp Ss - [id number] Start: 03-10-2013 Screw Bn 3.5mm 30mm Lc Dcp Ss - [id number] Start: 03-14-2013 Screw Bn 3.5mm 34mm Lc Dcp Ss - [id number] Start: 03-14-2013 Screw Bn 3.5mm 40mm Lcp Ss - [id number] Start: 03-14-2013 Screw Bn 3.5mm 24mm Lcp Ss - [id number] Start: 03-14-2013 Screw Bn 3.5mm 30mm Lcp Ss - [id number] Start: 03-14-2013 Screw Bn 3.5mm 24mm Dcp Lc Dcp - [id number] Start: 03-14-2013 Screw Bn 3.5mm 32mm Lc Dcp Ss - [id number] Start: 03-14-2013 Screw Bn 3.5mm 45mm Lcp Ss - [id number] Start: 03-14-2013 Screw Bn 3.5mm 50mm Lcp Ss - [id number] Start: 03-14-2013 Wire Fix 1.6mm 150mm Krsh Ss - [id number] Start: 03-10-2013 Goals Date Patient Goal Desired Activity /State Functional Status Date Assessment Result Facility 05-30-2023 Functional status Ambulates [facility] Work Phone: Mental Status Date Assessment Result Facility 05-30-2023 Cognitive function Level Of Cons ciousness Awake;Alert;Appropriate;Follow s Commands [facility] Work Phone: 05-30-2023 Cognitive function Voice/Name [facility] Work Phone: Clinical Notes 05-17-2013 to 03-01-2025 Note Date & Type Note Facility 03-01-[address] [facility] 03-01-2025 Evaluation note Diagnosis Onset Date Resolution Esophageal dysmotility acute Oc tober 2024 8:21am Dysphagia chronic March 01, 2025 8:21am [facility] Work Phone: 1(780) 940-624009-18-2025 Procedure note [facility] [address] [place] [address] Modified Barium Swallow Study MR#: [id number] Acct: [id number] Name: MELANIA LABOY Rep #:[id number] : 1955 69 From: Fanta Leigh, [facility] Modified Barium Swallow Patient Information Study Date: 01/26/25 Study Time: 09:25 Direct Billable Minutes: 71 Total Minutes procedure & reportin Diagnosis: Dysphagia R13.10; Esophageal dysmotility K22.4 Referring Physician: Vita Viveros Reason for Referral: Objectively assess swallow function, assess risk for aspiration, and determine recommendations for least restrictive diet textures and compensatory strategies to improve safety of swallow. Medical History: [facility] 08/23/2024: Pt followed up for dysphagia and globus sensation. LISA Sykes concerned for silent reflux and placed the patient on omeprazole andrecommended patient for this MBSS. Hx of esophageal testing at [facility]: 05/16/2020 Esophagram IMPRESSION: Normal plain film x-ray examination (barium swallow) of the esophagus. 05/30/2020 EGD Impression: - Z-line regular, 42 cm from the incisors. No specimens collected. - Normal stomach. Biopsied. - Normal examined duodenum. No specimens collected. Per patient, he has experienced episodic sensation of foods becoming caught in his lower throat/upper esophagus for the past 4-5 years, ~1X per month. He consumes regular textures / thin liquids, butintermittently rice or shredded meats are difficult to swallow. When these foods feel stuck, he will sometimes regurgitate them. A liquid wash w/ water or carbonated beverage is not helpful, and he will regurgitate the liquids sometimes, too. He will occ have a coughing spell w/ peanuts or grainy cereal. Associated symptoms of dysphagia are hiccups.He denies odynophagia, hx of PNA. He reports no formal GERD diagnosis, but he istaking omeprazole as recommended by [facility]. He reports hx of gastritis.Dry cough intermittently at baseline, which he attributes to his seasonal allergies. Medical History Loss of hearing Wears glasses Alcohol use Indwelling urethral catheter present Prostate disease Low iron Injury of back Non-smoker Dysphagia Current Diet Ordered: Regular textures / Thin liquids Dentition: WNL and Natural Teeth Mental Status: WNL Respiratory Status: Oxygenating on Room Air Penetration-Aspiration Scale Penetration-Aspiration Scale: OBJECTIVE ASSESSMENT OF SWALLOW FUNCTION (QUANTITATIVE ? PER TRIAL): PENETRATION / ASPIRATION SCALE (ROQUE): 1 = does not enter airway 2 = enters airway/above vocal folds/ejected 3 = enters airway/above vocal folds/not ejected 4 = enters airway/contacts vocal folds/ejected 5 = enters airway/contacts vocal folds/not ejected 6 = enters airway/below vocal folds/ejected 7 = enters airway/below vocal folds/not ejected despite effort 8 = enters airway/below vocal folds/no effort VIDEOFLOROSCOPIC SCALE SCORE (ROQUE): Grade I = aspiration of material that has penetrated into the laryngeal vestibule, intact cough reflex Grade II = aspiration < 10 % of the bolus, intact cough reflex Grade III = aspiration of < 10 % of the bolus, reduced cough reflex or aspiration of > 10 % of the bolus, intact cough reflex Grade IV = aspiration of > 10 % of the bolus, reduced cough reflex Penetration-Aspiration Scale Score Thin Liquid via teaspoon: Result: 2= enter airway/above vocal folds/ejected Thin Liquid via large single sip: cup: Result: 2= enter airway/above vocal folds/ejected Thin Liquid via sequential sips: cup: Result: 2= enter airway/above vocal folds/ejected Comment: Esophageal screen - Mild retention in the lower esophagus w/ minimal retrograde flow remaining wellbelow the UES. Pudding via teaspoon: Result: 1= does not enter airway Comment: Esophageal screen - Retention throughout the esophagus. Pt is not sensate of esophageal retention of pudding. Thin Liquid via sequential sips:straw: Result: 2= enter airway/above vocal folds/ejected Comment: Esophageal screen - Two liquid washes somewhat cleared esophageal retention of pudding from previous trial. Third liquid wash cleared additional retention of pudding. 1/2 Cookie: Result: 1= does not enter airway Comment: Two liquid washes somewhat cleared esophageal retention of pudding from previoustrial. Liquid washes X2 provided during the screen, which mostly cleared retention of cookie through the LES. Oral Phase Labial Seal: No Labial Escape Tongue Control During Bolus Hold: Posterior escape of greater than half of bolus(sequential thin) Bolus Preparation/Mastication: Timely and efficient chewing and mashing Bolus Transport/Lingual Motion: Brisk tongue motion Oral Residue: Trace residue lining oral structures Pharyngeal Phase Initiation of Pharyngeal Swallow: Bolus head in pyriforms (sequential thin) Soft Palate Elevation: Trace column of contrast/air between soft palate and pharyngeal wall Laryngeal Elevation: Comp. Superior move thyroid cart w/comp. apprx arytenoid cart-epig pet Anterior Hyoid Excursion: Partial anterior movement Epiglottic Movement: Complete inversion Laryngeal Vestibule Closure at Height of Swallow: Incomplete; narrow column of air/contrast in laryngeal vestibule Pharyngeal Stripping Wave: Present - complete Pharyngoesophageal Segment Opening: Complete distension and complete duration; no obstruction of flow Tongue Base Retraction: Trace column of contrast between tongue base & post. pharyngeal wall Pharyngeal Residue: Trace residue within or on pharyngeal structures Esophageal Phase Esophageal Clearance: Esophageal retention w/ retrograde flow below pharyngoesophageal seg. Diagnosis/Impression Diagnosis: Oropharyngeal swallow function grossly WNL; Esophageal dysphagia R13.14 MBS Impressions: Oropharyngeal swallow function is grossly WNL. Posterior loss to the pharynx w/ sequential sips. Trace laryngeal penetration w/ complete ejection after the swallow w/ some liquid trials. No aspiration observed. Trace pharyngeal residues. The esophageal phase is marked by... -Mild retention of sequential sips of thin liquids in the lower esophagus w/ minimal retrograde flow remaining well below the UES. -Retention of pudding throughout the esophagus. Pt is not sensate of esophageal retention of pudding. Three liquid washes mostly cleared esophageal retention ofpudding. -Retention of cookie throughout the esophagus. Two liquid washes mostly cleared retention of cookiethrough the LES. Recommendations Diet: Regular Textures (Moisten Dry Textures) and Thin Liquids Comment: If sensation of retention, reflux, or retrograde flow despite use of frequent liquid wash, STOP meal and resume at a later time. Compensatory Strategies: Small Bites, Small Sips, Slow Rate, Alternate bites/solids and sips/liquids (Take 1-2 sips after every 1-2 bites) and Sitting upright (During and 60 min after a meal) Recommend Repeat Modified Barium Swallow: No Need for Skilled Speech Therapy Services: No Recommended Referrals: GI Consult (Continue to follow w/ [facility] for management of esophageal dysphagia.) Education Completed: 1. Described result of evaluation. Status Active ST Patient: Active Contact Information [facility] Speech Therapy:: Fanta Bruno M.A. [facility]-OPHTHALMIC DISPENSER Speech-Language Pathologist [facility] [address] [place] [address] [email or web address] [phone] 01/26/25 1043 M.A., CCC-OPHTHALMIC DISPENSER> Date/Time Fanta Bruno M.A., CCC-OPHTHALMIC DISPENSER Co-Signature Required for all Medicare patients Date/Time Co-Signature CC: ~ [facility]04-15-2025 Evaluation note* Diagnosis Onset Date Resolution Status Admit Date Globus sensation acute August 232024 7:54am Dysphagia chronic August 23 7:54am [facility] Work Phone: 1(970) 634-822901-20-2024 Progress note Author Raul Sargent [facility] May 30, 2023 8:46am Note Date/Time May 30, 2023 8 :46am [facility] Medical Records Department [address] [place] [address] Progress Note - Urology 05/30/23844 MR#: [id number] Acct: [id number] Name: MELANIA LABOY Rep #:[id number] : 1955 68 From: Raul Sargent MD PCP: Dr. Ignacio Delarosa MD Status:NERY LAN Location: [place] [address] Subjective Subjective Status post TURP doing well urine is clear DC Crook this morning voiding trial if he is able to urinate okay go home without a catheter Objective Data Objective Data Vital Signs: Vital Signs Temp Pulse Resp BP Pulse Ox O2 Del Method 98 F 78 16 115/69 96 Room Air 05/30/23 08:13 05/30/23 08:13 05/30/23 08:13 05/30/23 08:13 05/30/23 08:13 05/30/23 08:15 Oxygen Delivery Method Room Air Weight: 78.2 kg Body Mass Index (BMI) 25.4 Intake & Output: Intake and Output for Last 24 Hours 05/28/23 05/29/23 05/30/23 23:59 23:59 23:59 Intake Total 2250.09 / 2250.09 1300.00 / 1300.00 Output Total 1999 4900 / 4900 Balance 250.09 / 250.09 -3600.00 / -3600.00 05/30/23 0846 <Electronically signed by Raul Sargent MD> Cosigner Signature (if applicable): CC: ~ Signed [facility] Work Phone: 1(489) 303-430201-19-2024 Discharge summary Author Raul Sargent [facility] May 29, 2023 7:31am Note Date/Time May 29, 2023 7 :31am [facility] Medical Records Department [address] [place] [address] Instructions for Home/Discharge Instructions 05/29/23730 MR#: [id number] Acct: [id number] Name: MELANIA LABOY Rep #:[id number] : 1955 68 From: Raul Sargent MD PCP: Dr. Ignacio Delarosa MD Status:RE [facility] Discharge Instructions Diet Discharge Diet: No restrictions Activity Discharge Activity: Return to Normal Activity and May Not Drive (while taking narcotic pain medications.) Dressing / Incision Call your doctor if you observe: Fever of 101 or Higher Follow Up Care Please Follow Up With: Raul Sargent MD When: Call [phone] for an appointment Test Results: Test results from this visit will be discussed in further detail at your follow- up appointment, if applicable. Discharge Plan Admission Primary Reason for Your Visit: TURP Attending Provider: Raul Sargent Primary Care Provider: Ignacio Delarosa Discharge Orders/Prescriptions Prescriptions: New ciprofloxacin HCl [Cipro] 500 mg tablet 500 mg PO BID Qty: 14 0RF ibuprofen 600 mg tablet 600 mg PO Q6H PRN (Reason: fever or pain) Qty: 20 0RF Referrals / Follow Up: Raul Sargent MD [Med Staff - Active Staff] - Ignacio Delarosa MD [Primary Care Provider] - 05/29/23730<Electronically signed by Raul Sargent MD>Raul Sargent MD CC: Dr. Ignacio Delarosa MD ~ Signed [facility] Work Phone: 1(520) 401-623801-19-2024 History and physical note Author Raul Arie [facility] May 29, 2023 7:31am Note Date/Time May 29, 2023 7 :31am [facility] Medical Records Department [address] [place] [address] History & Physical Exam 05/29/23729 MR#: [id number] Acct: [id number] Name: MELANIA LABOY Rep #:[id number] : 1955 68 From: Raul Sargent MD PCP: Dr. Ignacio Delarosa MD Status:RE [facility] Location: [place] [address] HPI - General General Date of Admission: 05/29/23 Chief Complaint: BPH with retention of urine HPI Narrative MELANIA LABOY, is a 68 M who presents for transurethral section of prostate hasdeveloped retention of urine PFSH Medical History (Updated 05/27/23 @ 14:02 by Linette Phoenix) Alcohol use Dysphagia Indwelling urethral catheter present Injury of back Loss of hearing Low iron Non-smoker Prostate disease Wears glasses Home Medications ciprofloxacin HCl 500 mg tablet (Cipro) 500 mg PO BID #14 tabs 05/29/23 [Rx Last Taken Unknown] ibuprofen 600 mg tablet 600 mg PO Q6H PRN fever or pain #20 tabs 05/29/23 [Rx Last Taken Unknown] Allergy/AdvReac Type Severity Reaction Status Date / Time amoxicillin [Amoxicillin] Allergy Rash Verified 05/29/23 07:13 sulfamethoxazole Allergy Rash Verified 05/29/23 07:13 [From Bactrim] trimethoprim [From Bactrim] Allergy Rash Verified 05/29/23 07:13 Family History (Updated 05/23/20 @ 08:25 by Sheba Gaytan) Father Heart disease Myocardial infarction Rheumatic fever Mother COPD (chronic obstructive pulmonary disease) Brother Cancer lung Surgical History (Updated 05/27/23 @ 14:02 by Linette Phoenix) History of ankle surgery History of appendectomy History of colonoscopy (~03/2020) History of open reduction and internal fixation (ORIF) procedure Hx of esophagogastroduodenoscopy Social History (Updated 06/06/20 @ 10:12 by NASH RiceC) Smoking Status: Never smoker Vital Signs Vital Signs Vital Signs: 05/29/23 07:14 05/29/23 07:14 Temperature 99.7 F H Temperature Source Temporal Pulse Rate 89 Respiratory Rate 17 Respiratory Pattern Normal Blood Pressure 134/72 H Blood Pressure Mean 92 Blood Pressure Source Monitor Blood Pressure Position Semi-Fowlers Blood Pressure Location Right Arm Pulse Ox 99 Oxygen Delivery Method Room Air Weight Weight: 78.2 kg Body Mass Index (BMI) 25.4 05/29/23 0731 <Electronically signed by Raul Sargent MD> Cosigner Signature (if applicable): CC: Dr. Ignacio Delarosa MD; Dr. Raul Sargent MD~ Signed [facility] Work Phone: 1(320) 147-564601-19-2024 Procedure [facility] 05-17-2013 Miscellaneous Notes* Telephone Encounter - Shazia Cisse - 05/17/2013 9:00 AM EST Mrs. Laboy telephoned re: Mr. Lopes. States he has a rash around the incision. Looks like raisedbumps. Warm to touch. Stated I would notify Dr. Ramirez's nurse. Paged nurse. Shazia Cisse [facility] documented in this encounterKettering Healthveland ClinicEvaluation noteNo assessment information availableOhiohealth Hardin [facility] Hospital Work Phone: Progress note Author Surya Camacho [address] [address] [facility] Note Date/Time March 01, 2025 1 0:53am [facility] [address] [facility] [address] [place] [address] OFFICE VISIT Date of Service: 03/01/25 MR#: [id number] Acct: [id number] Name: MELANIA LABOY Rep #: [id number] : 1955 Provider: Surya Camacho DO Age/Sex: 69/M Location: [facility] Status: Signed Intake Vital Signs 05/29/23 09:56 Height 5 ft 9 in Intake Visit Reasons: Test Result Allergies amoxicillin (Amoxicillin) Allergy (Verified 08/23/24 07:56) Rash sulfamethoxazole (From Bactrim) Allergy (Verified 08/23/24 07:56) Rash trimethoprim (From Bactrim) Allergy (Verified 08/23/24 07:56) Rash Medications ?Medication ?Instructions ?Recorded ?Confirmed ?Type omeprazole 20 mg capsule,delayed 20 mg PO QDAY #90 cap s 01/02/25 03/01/25 Rx release Have you fallen in the past year?: No Nurse's Note: Pt was scheduled for EGD on 04.25.25 at the end of their appt today. Reviewed prep instructions and which medications to hold prior to procedure with pt in office. A paper copy of EGD prep instructions were given to pt. Pt denies any questions or concerns at this time. [facility] Medical History Loss of hearing Wears glasses Alcohol use Indwelling urethral catheter present Prostate disease Low iron Injury of back Non-smoker Dysphagia Surgical History Hx of esophagogastroduodenoscopy History of ankle surgery History of open reduction and internal fixation (ORIF) procedure History of appendectomy History of colonoscopy (~03/2020) Family History Father Heart disease Myocardial infarction Rheumatic fever Mother COPD (chronic obstructive pulmonary disease) Brother Cancer lung Social History Smoking Status: Never smoker HPI HPI Details: MELANIA LABOY, is a 69-year-old gentleman, reports a several-year history of difficulty swallowing solids. * He underwent a barium esophagram in 2020 that showed a narrowing in the distal portion of his esophagus. * Recently, he had an evaluation by a speech-language pathologist, during which he had difficulty swallowing different food consistencies, noting that pudding had trouble moving into his stomach. * His symptoms improved in the past while on omeprazole.?No reports of fever or weight loss. Reports dysphagia to solids for several years, now progressing to liquids as evidenced by difficulty with pudding. Reports improved symptoms with omeprazole in the past. ?No history of smoking. No family history of esophageal cancer. * Diagnostic Data: * Barium Esophagram (2020):?Demonstrated a narrowing in the distal esophagus. * Speech Pathology Evaluation (Recent):?Showed difficulty moving pudding into the stomach, indicating an issue with liquid swallowing in addition to the long- standing solid food dysphagia. pt reports that he is feeling well overall and denies GI symptoms of concern atthis time. Pt reports that he has not had any symptoms or issues since December. Is here to review results from barium swallow study. Pt continues with Omeprazole 20mg daily. ROS Const Constitutional: No fatigue, fever(s) or weight change ENT ENT: No difficulty swallowing Gastro GI: No abdominal pain, belching, bloating, change in bowel habits, change in stool character, coffee ground emesis, constipation, cramping, diarrhea, heartburn, difficulty swallowing, feeling full early, excessive flatus, incontinent of stools, Vomiting blood/hematemesis, Blood in stool, loose stools,Black,tarry stools, nausea/dyspepsia, pain with swallowing, vomiting or other Musc Musculoskeletal: No joint pain Skin Skin: No yellowing of the eye or itchy eyes Psych Psychiatric: No anxiety and No depression Endo Endocrine: No fatigue or weight change Aller/Imm Allergy/Immunologic: No itchy eyes Fam/Lymp Hematologic/Lymphatic: No easy bleeding or easy bruising Exam Const General: cooperative, healthy appearing, comfortable, no acute distress and wellgroomed Nutritional Appearance: average body habitus Orientation: alert and oriented x3 HENMT Head: normal to inspection Ears: hearing grossly normal bilaterally Nose: external nose normal Face and sinus: normal facial exam and face symmetric Eyes General: appearance normal, both eyes and all related structures Sclera: sclerae normal Neck Neck: normal visual inspection and full ROM Chest Chest palpation & inspection: normal inspection of the chest Resp Effort & Inspection: normal respiratory effort, able to speak in complete sentences and symmetric chest movement GI Inspection: normal to inspection Auscultation: normal bowel sounds Palpation: soft and no hepatosplenomegaly Skin General: no rashes or lesions noted Neuro General: patient alert, patient oriented x3 and moves all extremities Cognition: normal cognition Speech: speech normal Gait: normal gait Extrem General: full ROM Psych Appearance: well kempt Mental Status: mental status grossly normal Mood: congruent mood Affect: normal affect Speech and Movement: speech and movement normal Attitude: cooperative Thought Process: normal Judgment: judgment good Assessment and Plan Assessment and Plan (1) Esophageal dysmotility: Status: Acute (2) Dysphagia: Status: Chronic Qualifiers: Dysphagia type: esophageal phase Qualified Code(s): R13.19 - Other dysphagia Plan Problem:?Solid food esophageal dysphagia, progressing to liquids. * Primary Differential Diagnosis: * Peptic Stricture:?This is the most likely diagnosis. It is caused by chronic gastroesophageal reflux disease (GERD), which leads to scarring and narrowing of the esophagus. The patient's symptom improvement with omeprazole (a proton pump inhibitor) strongly supports this, as PPIs help heal esophagitis and relieve symptoms caused by acid reflux. Chronic GERD is the most common cause of benign esophageal strictures. * Other Differential Diagnoses: * Achalasia:?A rare motility disorder where the lower esophageal sphincter (LES) fails to relax, causing food and liquid to back up. It causes progressive solid and liquid dysphagia. However, achalasia symptoms are not typically relieved by omeprazole, unlike peptic strictures. * Esophageal Cancer:?The patient's history of dysphagia in the elderly population warrants consideration of esophageal malignancy, especially with progressive symptoms. While the patient lacks smoking and strong family history risk factors, chronic GERD can be a risk factor for adenocarcinoma. An EGD with biopsy is critical to rule this out. * Eosinophilic Esophagitis:?An allergic inflammatory condition that can cause dysphagia and strictures, but symptom improvement with omeprazole is more indicative of a peptic stricture. * Scleroderma:?A connective tissue disease that can cause esophageal dysmotility and reflux, leading to stricture formation. It is a less common cause than GERD. Plan * Diagnostics: * Esophagogastroduodenoscopy (EGD) with Biopsy:?This is the next crucial step. It will allow for direct visualization of the stricture, assessment of the mucosa for esophagitis or Pelletier's esophagus, and tissue sampling to rule out malignancy. * Manometry:?If the EGD is negative for stricture or cancer, esophageal manometry should be considered to assess for a motility disorder like achalasia. * Treatment: * For Peptic Stricture (pending confirmation): * Endoscopic Dilation:?The EGD can be used therapeutically to dilate (stretch) the stricture to relieve the dysphagia. * Ongoing Proton Pump Inhibitor (PPI) Therapy:?Continue high-dose omeprazole to suppress acid and prevent stricture recurrence. 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 Advance Directive(s) 04/13/2013 7:40 PM Advance Directive Response Recorded Date/ Time Living Will Yes May 25 11:34am Power of Egg Packer Yes May 25, 2020 11:34am Advance Directive Response Recorded Date/ Time Living Will Yes May 25 10:34am Power of Egg Packer Yes May 25, 2020 10:34am Advance Directive Response Recorded Date/ Time Name of Medical Power of Egg Packer Iris dennis May 29, 2023 9:56am Living Will Yes May 29 9:56am Power of Egg Packer Yes May 29, 2023 9:56am Advance Directive Response Recorded Date/ Time Name of Medical Power of Egg Packer Iris dennis May 29, 2023 10:56am Living Will Yes May 29 10:56am Power of Egg Packer Yes May 29, 2023 10:56am Family History Relationship Condition Age at Onset Recorded Date/T nick father Cardiac disease Unknown Myocardial infarction Unknown Rheumatic fever Unknown mother Chronic obstructive pulmonary disease Unk nown brother Malignant neoplasm Unknown Chief Complaint and Reason for Visit Chief Complaint PSA Chief Complaint PSA Transurethral Resection of Prostate with Olympus Chief Complaint PSA PREOP Transurethral Resection of Prostate with Olympus Chief Complaint Admit Date 6 M FU August 23, 2024 7:5 4am Reason for Visit Admit Date Globus sensation August 23, 2024 7:5 4am Dysphagia August 23, 2024 7:5 4am Chief Complaint Admit Date ESOPHAGEAL DYSMOTILITY January 26 025 9:04am Chief Complaint Admit Date ESOPHAGEAL DYSMOTILITY January 26 025 9:04am Test Result March 01, 2025 8 :21am Reason for Visit Admit Date Esophageal dysmotility March 01 8:21am Dysphagia March 01, 2025 8 :21am Summary Purpose Additional Source Comments Source Comments (unrecognize d section and content) In the event this informatio n is protected by the Federal Confidentiality of Alcohol and Drug Abuse Patient Records regulations: The Federal rules restrict any use of the information to criminally investigate or prosecute any alcohol or drug abuse patient.[facility] Goals (unrecognized section and content) Goals may be documented in a n alternate sectionGoals may be documented in an alternate sectionGoals may be documented in an alternate sectionGoals may be documented in an alternate sectionGoals may be documented in an alternate sectionGoals may be documented in an alternate section Care Teams (unrecognized sec tion and content) Team Status: Active Member Role Status Dates Dr. Ignacio Schmidt MD Family Provider Active Dr. Ignacio Delarosa MD Primary Care Provider Active Team Status: Inactive Member Role Status Dates Dr. Ignacio Delarosa MD Primary Care Provider Active Dr. Raul Sargent MD Attending Provider, Referr ing Provider Active Team Status: Inactive Member Role Status Dates Dr. Ignacio Delarosa MD Primary Care Provider Active Dr. Raul Sargent MD Admit Provid er, Attending Provider, Referring Provider Active Team Status: Active Member Role Status Dates Dr. Ignacio Delarosa MD Primary Care Provider Active Dr. Hernando Watt MD Attending Provider Active Dr. Aravind Barriga MD Referring Provider Active Team Status: Inactive Member Role Status Dates Dr. Ignacio Delarosa MD Primary Care Provider, Attend ing Provider Active Team Status: Inactive Member Role Status Dates Dr. Ignacio Delarosa MD Primary Care Provider Active Start: August 23, 2024 End: August 23, 2024 Dr. Ignacio Delarosa MD Referring Provider Active Start: August 23, 2024 End: August 23, 2024 LISA Sykes Attending Provider Active S tart: August 23, 2024 End: August 23, 2024 Team Status: Inactive Member Role Status Dates Dr. Ignacio Delarosa MD Primary Care Provider Active Start: October 17, 2024 End: October 17, 2024 Dr. Raul Sargent MD Attending Provider Active Start: October 17, 2024 End: October 17, 2024 Dr. Raul Sargent MD Referring Provider Active Start: October 17, 2024 End: October 17, 2024 Team Status: Active Member Role/Relationship Status Dates Dr. Ignacio Delarosa MD Primary care physician Active Team Status: Inactive Member Role/Relationship Status Dates Dr. Ignacio Delarosa MD Primary care physician Active Start: October 17, 2024 End: October 17, 2024 Dr. Raul Sargent MD Attending physician Active Start: October 17, 2024 End: October 17, 2024 Dr. Raul Sargent MD Referring Provider Active Start: October 17, 2024 End: October 17, 2024 Team Status: Inactive Member Role/Relationship Status Dates Dr. Ignacio Delarosa MD Primary care physician Active Start: January 26, 2025 End: January 26, 2025 LISA Sykes Attending physician Active Start: January 26, 2025 End: January 26, 2025 LISA Sykes Referring Provider Active S tart: January 26, 2025 End: January 26, 2025 Team Status: Inactive Member Role/Relationship Status Dates Dr. Ignacio Delarosa MD Primary care physician Active Start: January 26, 2025 End: January 26, 2025 LISA Sykes Attending physician Active Start: January 26, 2025 End: January 26, 2025 LISA Sykes Referring Provider Active S tart: January 26, 2025 End: January 26, 2025 Team Status: Inactive Member Role/Relationship Status Dates Dr. Ignacio Delarosa MD Referring Provider Active Start: March 01, 2025 End: March 01, 2025 Dr. Surya Camacho DO Attending physician Active Start: March 01, 2025 End: March 01, 2025 (unrecognized sect ion and content) No Status Records Found INFORMATION SOURCE (unrecogn ized section and content) DATE CREATED AUTHOR 03/02/2025 [facility] FOR RECORDS PERTAINING TO PATIENTS [...] BE BASED ON THE PRIMARY CLINICAL RECORDS. [email or web address] provides no warranty or guarantee of the accuracy or completeness of information in this document.
[2025-04-25 05:56] VITALS: BP 151/77; PULSE 93; RESP 18; TEMP 37.4; O2SAT 99; BMI 26.4
[2025-04-25] MEDS: Lactated Ringers 1,000 ML 15 ML IV (06:06)
--- NOTE | 2025-04-25 06:30 | EGD_PTH ---
PATIENT: MELANIA SANTOYO LOC: EN U#:[id number] AGE/SX: 69/M ROOM: RE04/25/[address]: Dr. Surya Camacho DO : 1955 BED: DIS: 04/25/2025 SPEC #: [id number] RECD: 04/25/25 07:53 STATUS: KEZIA WESLEY #: [id number] SUNDAY: 04/25/25 06:[address]: Surya Camacho DEPT: SURGICAL PATHOLOGY RECD BY: Haroon Pereira ENTERED: 04/25/25 09:52 SP TYPE: EGD BIOPSY HARI DR: Dr. Ignacio Delarosa MD Tissues: A - Esophagus, NOS Procedures: Surgery Specimen Level IV HEADER OPERATION: EGD with biopsy and dilated PRE-OP DIAGNOSIS: Esophageal dysmotility, Globus sensation, dysphagia TISSUE SUBMITTED: A- Random esophagus biopsy MICROSCOPIC DIAGNOSIS A. Esophagus, random, biopsy: * Benign squamous epithelium with reactive changes * Cardiac type mucosa with mild chronic inflammation and goblet cell metaplasia * Negative for dysplasia MICROSCOPIC DESCRIPTION Slides are reviewed. GROSS DESCRIPTION a. Received in fixative is one container labeled with the patient's name and designated Random esophagus biopsy. The specimen consists of multiple irregular fragments of harding tissue that in aggregate measure 0.9 x 0.5 x 0.1 cm. The specimen is totally submitted in one cassette. MD 04/25/2025 CPT:12785
--- NOTE | 2025-04-25 06:38 | PCM.PRE.AN2 ---
ASA Classification* ASA Classification ASA Classification: 2 Assessment & Plan Anesthesia* Anesthesia Assessment Anesthesia Assessment: Discussed sedation and/or anesthesia options, risks, benefits, and alternatives with patient/parents/legal guardian/POA. Questions invited. The patient/parents/legal guardian/POA seems to understand and agrees to proceed with anesthesia plan. Reviewed the physical assessment, medical history, allergy history and patient home medications list prior to surgery/procedure/anesthetic and documented any changes. Performed airway and anesthesia risk assessments. Anesthesia Type Anesthesia Type: MAC Anesthesia Focused Assessment* Temperature: 99.3 F Pulse Rate: 93 Blood Pressure: 151/77 Respiratory Rate: 18 Pulse Ox: 99 Airway Assessment Mouth opens: >3 cm Mallampati Score: II Labs Anesthesia Preop lab: CBC WBC, (4.4-11.0) 5.3 K/mm3 09/03/23, 08:35 RBC, (4.6-6.2) 5.01 M/mm3 09/03/23, 08:35 Hgb, (13.0-16.5) 15.4 g/dL 09/03/23, 08:35 Hct, (40-54) 46.5 % 09/03/23, 08:35 Plt Count, (150-450) 228 K/mm3 09/03/23, 08:35 CHEMISTRY Potassium, (3.5-5.1) 3.8 mmol/L 09/03/23, 08:35 Sodium, (136-145) 141 mmol/L 09/03/23, 08:35 BUN, (7-18) 14 mg/dL 09/03/23, 08:35 Creatinine, (0.70-1.30) 0.92 mg/dL 09/03/23, 08:35 Glucose, (74-106) 82 mg/dL 09/03/23, 08:35 TSH, (0.358-3.74) 2.21 uIU/mL 09/03/23, 08:35 COAG Pre-Assessment Diagnosis/Proposed Procedure Planned Operative Procedure(s): EGD Anesthesia History 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 When Was Last Pacemaker Check QUESTION #4 FULL TEXT: You/Your Family Experience fever (hyperthermia) with Anesthesia Last Oral Intake Last Oral intake: Last Oral Intake NPO since 20:00 04/25/25 05:56 Meds taken in AM with sips of No 04/25/25 05:56 water? Meds patient instructed to take am of surgery PONV PONV - small battery plate assembler: PONV - small battery plate assembler Female No 04/21/25 13:20 HX of Motion Sickness No 04/21/25 13:20 HX of N/V After Surgery No 04/21/25 13:20 Non-Smoker Yes 04/21/25 13:20 Duration of Surgery greater No 04/21/25 13:20 than 60 minutes Number of Risk Factors 1 04/21/25 13:20 PONV Score Low Risk 04/21/25 13:20 Height & Weight Height & Weight: Anesthesia: Height & Weight Height 5 ft 9 in 04/25/25 05:56 Weight: 81 kg 04/25/25 05:56 Body Mass Index (BMI) 26.4 04/25/25 05:56 Respiratory Assessment Respiratory Assessment - small battery plate assembler: Respiratory Tract Infection Hx - small battery plate assembler Hx Respiratory Tract Infection No 04/21/25 13:20 STOP Sleep Apnea STOP Sleep Apnea - small battery plate assembler: STOP Sleep Apnea - small battery plate assembler Hx Hypertension No 04/21/25 13:20 Hx Sleep Apnea No 04/21/25 13:20 CPAP BIPAP Do you snore loudly (louder No 04/21/25 13:20 than talking or can be heard Do you often feel tired/ No 04/21/25 13:20 fatigued/ sleepy during daytime? Has anyone observed you stop No 04/21/25 13:20 breathing during sleep? STOP Results Negative 04/21/25 13:20 QUESTION #5 FULL TEXT : Do you snore loudly (louder than talking or can be heard through closed doors)? 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 Specify any problems Hx of Preganancy in last 3 N/A 04/21/25 13:20 Months Nurse Filling Out Transfusion VCHRISTIN 04/21/25 13:20 & Questions: Date: 04/21/25 04/21/25 13:20 Time: 13:21 04/21/25 13:20 Patient unable to answer at this time (ie. confused, unrespo /Reproduction History /Reproductive History - small battery plate assembler: /Reproductive Hx- small battery plate assembler Hx Now No 04/21/25 13:20 Gestational Age (in weeks): EDC: Hx Hx Para Hx Section SAB No 04/21/25 13:20 Does the father of the baby or his family experience fever w Father of the baby Malignant Hypertension history comment Active Medications Active Medications: Current Medications Generic Name Dose Route Start Last Admin Trade Name Freq PRN Reason Stop Dose Admin Lactated Ringer's 1,000 mls @ 15 mls/hr 04/25/25 05:45 04/25/25 06:06 IV 15 mls/hr .Q48H SHELIA Administration PFSH Medical History Loss of hearing Wears glasses Alcohol use Indwelling urethral catheter present Prostate disease Low iron Injury of back Non-smoker Dysphagia Home Medications ?Medication ?Instructions ?Recorded ?Last Taken ?Type omeprazole 20 mg capsule,delayed 20 mg PO QODAY 04/21/25 04/24/25 History release Allergy/AdvReac Type Severity Reaction Status Date / Time amoxicillin (Amoxicillin) Allergy Rash Verified 04/25/25 05:52 sulfamethoxazole (From Allergy Rash Verified 04/25/25 05:52 Bactrim) trimethoprim (From Bactrim) Allergy Rash Verified 04/25/25 05:52 Family History Father Heart disease Myocardial infarction Rheumatic fever Mother COPD (chronic obstructive pulmonary disease) Brother Cancer lung Surgical History Hx of transurethral resection of prostate Hx of esophagogastroduodenoscopy History of ankle surgery History of open reduction and internal fixation (ORIF) procedure History of appendectomy History of colonoscopy (~03/2020) Social History Smoking Status: Never smoker Review of Systems (Anesthesia) ROS Narrative System reviewed and no additional complaints, except as documented.
[2025-04-25 06:39] VITALS: BP 151/77; PULSE 93; RESP 18; TEMP 37.4; O2SAT 99
--- NOTE | 2025-04-25 06:48 | HP.PCM_ITS ---
HPI - General General Date of Admission: 04/25/25 Date of Service: 04/25/25 Chief Complaint: dysphagia HPI Narrative MELANIA SANTOYO, is a 69 M who presents [ MELANIA SANTOYO, is a 69-year-old gentleman, reports a several-year history of difficulty swallowing solids. * He underwent a barium esophagram in 2020 that showed a narrowing in the distal portion of his esophagus. * Recently, he had an evaluation by a speech-language pathologist, during which he had difficulty swallowing different food consistencies, noting that pudding had trouble moving into his stomach. * His symptoms improved in the past while on omeprazole.?No reports of fever or weight loss. Reports dysphagia to solids for several years, now progressing to liquids as evidenced by difficulty with pudding. Reports improved symptoms with omeprazole in the past. ?No history of smoking. No family history of esophageal cancer. * Diagnostic Data: * Barium Esophagram (2020):?Demonstrated a narrowing in the distal esophagus. * Speech Pathology Evaluation (Recent):?Showed difficulty moving pudding into the stomach, indicating an issue with liquid swallowing in addition to the long-standing solid food dysphagia. pt reports that he is feeling well overall and denies GI symptoms of concern at this time. Pt reports that he has not had any symptoms or issues since December. Is here to review results from barium swallow study. Pt continues with Omeprazole 20mg daily. ] [facility] Medical History Loss of hearing Wears glasses Alcohol use Indwelling urethral catheter present Prostate disease Low iron Injury of back Non-smoker Dysphagia Home Medications ?Medication ?Instructions ?Recorded ?Last Taken ?Type omeprazole 20 mg capsule,delayed 20 mg PO QODAY 04/24/25 History release Allergy/AdvReac Type Severity Reaction Status Date / Time amoxicillin (Amoxicillin) Allergy Rash Verified 04/25/25 05:52 sulfamethoxazole (From Allergy Rash Verified 04/25/25 05:52 Bactrim) trimethoprim (From Bactrim) Allergy Rash Verified 04/25/25 05:52 Family History Father Heart disease Myocardial infarction Rheumatic fever Mother COPD (chronic obstructive pulmonary disease) Brother Cancer lung Surgical History Hx of transurethral resection of prostate Hx of esophagogastroduodenoscopy History of ankle surgery History of open reduction and internal fixation (ORIF) procedure History of appendectomy History of colonoscopy (~03/2020) Social History Smoking Status: Never smoker ROS Constitutional Constitutional: Denies fatigue, fever(s), poor appetite, weight gain or weight loss Gastrointestinal Gastrointestinal: Denies belching, bloating, change in bowel habits, change in stool character, chewing difficulty, coffee ground emesis, constipation, cramping, diarrhea, dyspepsia, dysphagia, early satiety, excessive flatus, fecal incontinence, heartburn, hematemesis, hematochezia, hemorrhoids, loose stools, melena, nausea, odynophagia, rectal bleeding, tenesmus, vomiting or weight changes Vital Signs Vital Signs Vital Signs: 04/25/25 05:56 04/25/25 05:56 04/25/25 05:56 Temperature 99.3 F H Temperature Source Temporal Pulse Rate 93 Respiratory Rate 18 Respiratory Pattern Normal Blood Pressure 151/77 H Blood Pressure Mean 101 Blood Pressure Source Monitor Blood Pressure Position Semi-Fowlers Blood Pressure Location Left Arm Baseline BP 151/77 Pulse Ox 99 Oxygen Delivery Method Room Air 04/25/25 06:39 Temperature 99.3 F H Temperature Source Pulse Rate 93 Respiratory Rate 18 Respiratory Pattern Blood Pressure 151/77 H Blood Pressure Mean Blood Pressure Source Blood Pressure Position Blood Pressure Location Baseline BP Pulse Ox 99 Oxygen Delivery Method Weight Weight: 178 lb 9.191 oz Body Mass Index (BMI) 26.4 Physical Exam Const alert, oriented x3, no apparent distress and healthy appearing General Appearance: cooperative GI normal to inspection, nondistended, normoactive bowel sounds, soft to palpation, non-tender and non-distended Percussion: normal to percussion Rectal Exam: deferred Assessment & Plan Assessment/Plan (1) Esophageal dysmotility: (2) Globus sensation: (3) Dysphagia: QUALIFIERS: Dysphagia type: esophageal phase Qualified Code(s): R13.19 - Other dysphagia PLAN: Assessment and Plan Assessment and Plan (1) Esophageal dysmotility: Status: Acute (2) Dysphagia: Status: Chronic Qualifiers: Dysphagia type: esophageal phase Qualified Code(s): R13.19 - Other dysphagia Plan Problem:?Solid food esophageal dysphagia, progressing to liquids. * Primary Differential Diagnosis: * Peptic Stricture:?This is the most likely diagnosis. It is caused by chronic gastroesophageal reflux disease (GERD), which leads to scarring and narrowing of the esophagus. The patient's symptom improvement with omeprazole (a proton pump inhibitor) strongly supports this, as PPIs help heal esophagitis and relieve symptoms caused by acid reflux. Chronic GERD is the most common cause of benign esophageal strictures. * Other Differential Diagnoses: * Achalasia:?A rare motility disorder where the lower esophageal sphincter (LES) fails to relax, causing food and liquid to back up. It causes progressive solid and liquid dysphagia. However, achalasia symptoms are not typically relieved by omeprazole, unlike peptic strictures. * Esophageal Cancer:?The patient's history of dysphagia in the elderly population warrants consideration of esophageal malignancy, especially with progressive symptoms. While the patient lacks smoking and strong family history risk factors, chronic GERD can be a risk factor for adenocarcinoma. An EGD with biopsy is critical to rule this out. * Eosinophilic Esophagitis:?An allergic inflammatory condition that can cause dysphagia and strictures, but symptom improvement with omeprazole is more indicative of a peptic stricture. * Scleroderma:?A connective tissue disease that can cause esophageal dysmotility and reflux, leading to stricture formation. It is a less common cause than GERD. Plan * Diagnostics: * Esophagogastroduodenoscopy (EGD) with Biopsy:?This is the next crucial step. It will allow for direct visualization of the stricture, assessment of the mucosa for esophagitis or Pelletier's esophagus, and tissue sampling to rule out malignancy. * Manometry:?If the EGD is negative for stricture or cancer, esophageal mano metry should be considered to assess for a motility disorder like achalasia. * Treatment: * For Peptic Stricture (pending confirmation): * Endoscopic Dilation:?The EGD can be used therapeutically to dilate (stretch) the stricture to relieve the dysphagia. * Ongoing Proton Pump Inhibitor (PPI) Therapy:?Continue high-dose omeprazole to suppress acid and prevent stricture recurrence.
--- NOTE | 2025-04-25 07:09 | OP.EGD_ITS ---
Patient Name: Moses Laboy Procedure Date: 04/25/2025 6:07 AM Date of : 1955 Age: 69 Procedure: Upper GI endoscopy Indications: Dysphagia Providers: Surya Camacho DO Referring MD: Ignacio Delarosa Medicines: Monitored Anesthesia Care Patient Profile: This is a 69 year old male. Refer to note in patient chart for documentation of history and physical. Patient has symptoms of dysphagia with solids. Complications: No immediate complications. Procedure: Pre-Anesthesia Assessment: - Prior to the procedure, a History and Physical was performed, and patient medications and allergies were reviewed. The patient is competent. The risks and benefits of the procedure and the sedation options and risks were discussed with the patient. All questions were answered and informed consent was obtained. Patient identification and proposed procedure were verified by the physician in the pre-procedure area. Mental Status Examination: alert and oriented. Airway Examination: normal oropharyngeal airway and neck mobility. Respiratory Examination: clear to auscultation. CV Examination: normal. Prophylactic Antibiotics: The patient does not require prophylactic antibiotics. Prior Anticoagulants: The patient has taken no anticoagulant or antiplatelet agents except for NSAID medication. ASA Grade Assessment: II - A patient with mild systemic disease. After reviewing the risks and benefits, the patient was deemed in satisfactory condition to undergo the procedure. The anesthesia plan was to use monitored anesthesia care (MAC). Immediately prior to administration of medications, the patient was re-assessed for adequacy to receive sedatives. The heart rate, respiratory rate, oxygen saturations, blood pressure, adequacy of pulmonary ventilation, and response to care were monitored throughout the procedure. The physical status of the patient was re-assessed after the procedure. After obtaining informed consent, the endoscope was passed under direct vision. Throughout the procedure, the patient's blood pressure, pulse, and oxygen saturations were monitored continuously. The Endoscope was introduced through the mouth, and advanced to the second part of duodenum. The upper GI endoscopy was accomplished without difficulty. The patient tolerated the procedure well. Scope In: 6:57:53 AM Scope Out: 7:03:18 AM Total Procedure Duration Time 0 hours 5 minutes 25 seconds Findings: Mucosal changes including ringed esophagus, feline appearance, longitudinal furrows, small-caliber esophagus and white plaques were found in the entire esophagus. Biopsies were obtained from the proximal and distal esophagus with cold forceps for histology of suspected eosinophilic esophagitis. A guidewire was placed and the scope was withdrawn. Dilation was performed with a Savary dilator with no resistance at 57 Fr. The dilation site was examined and showed moderate mucosal disruption. Estimated blood loss was minimal. No gross lesions were noted in the entire examined stomach. No gross lesions were noted in the entire examined duodenum. Abnormal motility was noted in the esophagus. The cricopharyngeus was normal. There are extra peristaltic waves in the esophageal body. The distal esophagus/lower esophageal sphincter is spastic, but gives up passage to the endoscope. Impression: - Esophageal mucosal changes consistent with eosinophilic esophagitis. Dilated. - No gross lesions in the entire stomach. - No gross lesions in the entire examined duodenum. - Biopsies were taken with a cold forceps for evaluation of eosinophilic esophagitis. Recommendation: - Discharge patient to home. - Resume previous diet. - Continue present medications. - Await pathology results. - Omeprazole 40 mg p.o. twice daily Procedure Code(s): --- Professional --- 91278, Esophagogastroduodenoscopy, flexible, transoral; with insertion of guide wire followed by passage of dilator(s) through esophagus over guide wire [id number], 59,51, Esophagogastroduodenoscopy, flexible, transoral; with biopsy, single or multiple CPT copyright 2021 [employer]. All rights reserved. The codes documented in this report are preliminary and upon mathematician review may be revised to meet current compliance requirements. Surya Camacho DO 04/25/2025 7:08:17 AM This report has been signed electronically. Number of Addenda: 0 Note Initiated On: 04/25/2025 6:07 AM
--- NOTE | 2025-04-25 07:09 | OP.PROVAT_ITS ---
04/25/2025 Ignacio Delarosa [address] [place] [address] Re : Upper GI endoscopy procedure for Moses Laboy Dear Dr. Delarosa This procedure was performed on Friday, April 25, 2025. My impressions and recommendations are as follows: Impressions : - Esophageal mucosal changes consistent with eosinophilic esophagitis. Dilated. - No gross lesions in the entire stomach. - No gross lesions in the entire examined duodenum. - Biopsies were taken with a cold forceps for evaluation of eosinophilic esophagitis. Recommendations : - Discharge patient to home. - Resume previous diet. - Continue present medications. - Await pathology results. - Omeprazole 40 mg p.o. twice daily My findings are described in the full procedure note, which is enclosed. If I can be of further assistance, please feel free to contact me at . Sincerely, Surya Camacho, 04/25/2025 7:08:17 AM This report has been signed electronically.
[2025-04-25 07:10] VITALS: BP 120/71; BP 151/77; PULSE 82; RESP 16; TEMP 36.2; O2SAT 95
--- NOTE | 2025-04-25 07:14 | PCM.POST.ANE ---
Anesthesia: Postop Eval I Current Vital Signs Temperature: 97.1 F Pulse Rate: 81 Blood Pressure: 120/71 Respiratory Rate: 16 Pulse Ox: 95 Oxygen Delivery Method: Room Air Assessment Airway patent: Yes Spontaneous unlabored respirations: Yes Mental status: Awake and Calm nausea: No Vomiting: No Anesthesia Complication: No Fluid Hydration Crystalloid volume administer (ml): 400 Total IV fluid infused: 400 Progress Note Anesthesia document: Postop Eval 1 completed: Yes
[2025-04-25 07:15] VITALS: BP 114/70; BP 120/71; BP 151/77; PULSE 76; PULSE 81; RESP 16; TEMP 36.2; O2SAT 94; O2SAT 95
[2025-04-25 07:20] VITALS: BP 110/74; BP 151/77; PULSE 71; RESP 16; TEMP 36.2; O2SAT 95
[2025-04-25 07:24] VITALS: BP 151/77
--- NOTE | 2025-04-25 07:29 | PCM.POSTANE2 ---
Anesthesia Postop Eval I Sum Postop Eval Completion status Anesthesia document: Postop Eval 1 completed: Yes Anesthesia Postop Eval I Summary Anesthesia Postop Eval I Summary: Anesthesia Postop Eval I: Assessment Summary Airway patent Yes 04/25/25 07:15 [email or web address] Spontaneous unlabored Yes 04/25/25 07:15 [email or web address] respirations Mental status Awake,Calm 04/25/25 07:15 [email or web address] nausea No 04/25/25 07:15 [email or web address] Vomiting No 04/25/25 07:15 [email or web address] Anesthesia Postop Eval I: Fluid Summary Crystalloid volume administer 400 04/25/25 07:15 [email or web address] (ml) Colloids volume administered ( ml) Blood Product volume administered (ml) Total IV fluid infused 400 04/25/25 07:15 [email or web address] Anesthesia Postop Eval I: Summary Notes Anesthesia Complication No 04/25/25 07:15 [email or web address] Anesthesia Complication Comment: Post-operative progress note Anesthesia: Postop Eval II Evaluation Mental status: Awake Pain Level: 0 nausea: No Vomiting: No
== END 2025-04-25 07:46 | disposition home or self-care (01) ==
LOC: EN 05:23 → AC 05:23
PROVIDERS: PCP Family Medicine; Referring Provider Family Medicine; Visit Provider Internal Medicine Gastroenterology
PROC: 0DJ08ZZ Inspection of Upper Intestinal Tract, Via Natural or Artificial Opening Endoscopic (ICD-10-PCS; CPT 43235; principal; 2025-04-25 06:25)
DX: K22.70 Barrett's esophagus without dysplasia (principal); K22.4 Dyskinesia of esophagus; Z79.899 Other long term (current) drug therapy; K20.90 Esophagitis, unspecified without bleeding
CPT/HCPCS: 43248; 43239; 88305; C1769; J2405